=== PATIENT | male | born 1940 | race Caucasian/White ===

== ENCOUNTER 2020-09-17 08:00 | Inpatient (IN) | payer MEDICARE, BC ==
--- NOTE | 2020-09-17 08:23 | EDM.PDOC ---
ED HPI GENERAL MEDICAL PROBLEM - General Chief Complaint: Chest Pain Stated Complaint: CHEST PAIN Time Seen by Provider: 09/17/20 08:23 Source of Information: Reports: Patient History Limitations: Reports: No Limitations - History of Present Illness INITIAL COMMENTS - FREE TEXT/NARRATIVE: 80-year-old male presents to the ED in the accompaniment of his . Chief complaint is increasing dyspnea on minimal exertion with pleuritic left-sided precordial chest pains that started last night. Patient appreciates a 2-3 point pound weight gain over the last 3 to 4 days. Patient has terminal congestive heart failure. He is currently on 60 mg of Lasix in the morning and 40 mg in the p.m. He did take 80 mg of Lasix this morning. Also had mild diarrhea this morning x1 with associated mild upper GI upset. Nausea with no vomiting. Stool did not contain any blood. Of note the patient is on both Plavix and Coumadin due to chronic atrial fibrillation and recent stent placement. Onset: Gradual Onset Date: 09/14/20 Duration: Day(s):, Getting Worse Location: Reports: Chest (Dyspnea on minimal exertion. Development of left precordial chest) Quality: Reports: Other ( pain this morning which is pleuritic in nature. Pleuritic left precordial chest pain) Severity: Moderate Improves with: Reports: None Worsens with: Reports: Other (Worse with exertion and deep breathing.) Context: Reports: Other (Recent 2 stent placement and 1 vessel balloon angioplasty 6 weeks ago. Aortic valve replaced in 2003.). Denies: Activity, Exercise, Lifting, Sick Contact, Trauma Associated Symptoms: Reports: Chest Pain, Cough, Loss of Appetite, Malaise, Nausea/Vomiting, Shortness of Breath, Weakness, Other. Denies: Confusion, cough w sputum (Nonproductive cough), Diaphoresis, Fever/Chills, Headaches, Rash, Seizure (Nausea without vomiting), Syncope Treatments RETOUCHER: Reports: Other (see below) (Recent reduction of amiodarone from 200 mg daily to 100 mg daily.) Chest Pain Score (Numeric/FACES): 2 - Related Data Allergies Allergy/AdvReac Type Severity Reaction Status Date / Time enoxaparin [From Lovenox] Allergy Rash Verified 09/17/20 08:13 statins Allergy Mild Muscle Uncoded 09/17/20 08:12 Weakness Home Meds: Home Meds Aspirin [Halfprin] 81 mg PO QAM 02/04/14 [History] Niacin 500 mg PO BEDTIME 02/04/14 [History] Tamsulosin [Flomax] 0.4 mg PO BEDTIME 02/04/14 [History] Warfarin [Coumadin] 2.5 mg PO DAILY 12/30/15 [History] Amiodarone [Cordarone] 200 mg PO DAILY 09/17/20 [History] Calcium Carbonate [Tums] 1 - 2 tab.chew PO DAILY PRN 09/17/20 [History] Clopidogrel [Plavix] 70 mg PO QPM 09/17/20 [History] Furosemide 40 mg PO 1400 09/17/20 [History] Furosemide 60 mg PO QAM 09/17/20 [History] Metoprolol Tartrate 25 mg PO BID 09/17/20 [History] Nitroglycerin 0.4 mg SL ASDIRECTED PRN 09/17/20 [History] Potassium Chloride [Klor-Con 10] 20 meq PO DAILY 09/17/20 [History] Ubidecarenone [Coq-10] 200 mg PO QPM 09/17/20 [History] lisinopriL [Lisinopril] 10 mg PO BEDTIME 09/17/20 [History] Past Medical History HEENT History: Reports: Cataract, Other (See Below) Other HEENT History: glasses Cardiovascular History: Reports: Heart Murmur, Heart Valve Replacement (Prosthetic aortic heart valve placed in 2003.), High Cholesterol, Hypertension, Stents (Recently had 2 stents and 1 vessel balloon angioplasty around August 02, [address] Feldman.) Other Cardiovascular History: AORTIC VALVE SURGERY Respiratory History: Reports: COPD (Mild) Other Respiratory History: UPPER RESPIRATORY INFECTION ON Sunday Genitourinary History: Reports: BPH, Other (See Below) Other Genitourinary History: bladder cancer Musculoskeletal History: Reports: Osteoarthritis, Other (See Below) Other Musculoskeletal History: r hip replacement, back surgery, left shoulder Oncologic (Cancer) History: Reports: Bladder - Past Surgical History HEENT Surgical History: Reports: Tonsillectomy Social & Family History - Tobacco Use Tobacco Use Status *Q: Never Tobacco User Second Hand Smoke Exposure: No - Caffeine Use Caffeine Use: Reports: Coffee, Soda - Recreational Drug Use Recreational Drug Use: No - Living Situation & Occupation Living situation: Reports: Occupation: Retired ED ROS GENERAL - Review of Systems Review Of Systems: See Below Constitutional: Reports: Malaise, Weakness, Fatigue, Decreased Appetite (2 to 3 pound weight: Over the last 4 days. Is bloated and distended.), Weight Gain. Denies: Fever, Chills HEENT: Reports: Glasses Respiratory: Reports: Shortness of Breath, Pleuritic Chest Pain, Cough (Left- sided pleuritic chest pain started during the night. Cough mainly nonproductive). Denies: Wheezing, Sputum ( worse yesterday than today), Hemoptysis, Other Cardiovascular: Reports: Blood Pressure Problem, Dyspnea on Exertion (Increased edema both lower extremities over the last several days.), Edema, Palpitations (Occasionally aware of palpitations.). Denies: Claudication, Lightheadedness, Orthopnea, PND Endocrine: Reports: Fatigue GI/Abdominal: Reports: Abdominal Pain (Feels abdominally bloated.), Diarrhea (Mild diarrhea this morning yellow no blood), Decreased Appetite, Nausea. Denies: Difficulty Swallowing, Vomiting (Nausea this morning), Other : Reports: Frequency, Other (Nocturia x2) Musculoskeletal: Reports: Neck Pain, Shoulder Pain, Back Pain, Joint Pain ( known BPH.) Skin: Reports: Bruising (Easy bruising as he is on Plavix and Coumadin.) Neurological: Reports: Difficulty Walking, Weakness. Denies: Confusion, Dizziness, Headache, Numbness, Syncope, Tingling, Tremors (Due to dyspnea.), Trouble Speaking, Change in Speech Psychiatric: Reports: No Symptoms Hematologic/Lymphatic: Reports: No Symptoms Immunologic: Reports: No Symptoms ED EXAM, GENERAL - Physical Exam Exam: See Below Exam Limited By: No Limitations General Appearance: Alert, WD/WN, Anxious, Other (Temperature is 36.1 degrees. Heart rate 60 and atrial fibrillation on the monitor. Respiratory rate was 25 to 28/min with O2 sats of 99% on room air. BP 140/77.) Eye Exam: Bilateral Eye: Normal Inspection (No blepharal pallor or scleral icterus.), PERRL Throat/Mouth: Normal Inspection, Normal Lips, Normal Oropharynx, Other. No: Normal Teeth Head: Atraumatic, Normocephalic Neck: Normal Inspection, Limited Range of Motion. No: Supple, Carotid Bruit, Lymphadenopathy (L) (Crepitus on lateral rotation and flexion.), Lymphadenopathy (R), Thyromegaly Respiratory/Chest: Lungs Clear (Tachypnea at rest.), Respiratory Distress, Decreased Breath Sounds (Very mild decreased breath sounds to both lower lung mendez with no adventitial sounds). No: Rales, Rhonchi, Wheezing Cardiovascular: No Rub, Systolic Murmur (Grade 1 out of 6 pansystolic ejection murmur best heard at the left parasternal border.), Irregularly Irregular (Chronic atrial fibrillation. Current rate is in the 60s.). No: Normal Peripheral Pulses, Regular Rate, Rhythm, No Edema, No Gallop Peripheral Pulses: 1+: Posterior Tibial (L) (Pulses in the feet are difficult to feel due to edema.), Posterior Tibial (R), Dorsalis Pedis (L), Dorsalis Pedis (R), 2+: Carotid (L), Carotid (R) GI/Abdominal: Soft ( percussion.), Non-Tender, No Organomegaly, Distended ( hyperactive in all 4 quadrants. Minimally distended), Abnormal Bowel Sounds (Bowel sounds are slightly), Other (Mildly obese. Scattered ecchymoses abdominal wall from recent injections.). No: No Abnormal Bruit, No Mass, Pelvis Stable Extremities: Pedal Edema (4+ pitting edema up to the knees bilaterally.), Other (Osteoarthritic changes both knees and both hips with reduced range of motion.) Neurological: Alert, Oriented, CN II-XII Intact, Normal Cognition Psychiatric: Anxious Skin Exam: Warm, Dry, Intact, Normal Color, No Rash #1 Interpretation EKG Date: 09/17/20 Time: 08:08 Rhythm: A-Fib (With rate of 54 to 86 bpm) Rate (Beats/Min): 61 [place]: LAD-Left [place] Deviation (-97 degrees) P-Wave: Absent QRS: Other (Q waves leads II, III and aVF consider old inferior wall myocardial infarction. 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 Abnormal ECG) Course - Vital Signs Last Recorded V/S: Last Vital Signs Temp 36.1 C 09/17/20 08:11 Pulse 60 09/17/20 08:11 Resp 25 H 09/17/20 08:11 BP 140/77 09/17/20 08:11 Pulse Ox 99 09/17/20 08:11 - Orders/Labs/Meds Orders: Active Orders 24 hr Category Date Time Status Admission Status [Patient Status] [ADT] Routine ADT 09/17/20 10:59 Active EKG Documentation Completion [RC] ASDIRECTED Care 09/17/20 10:10 Active EKG 12 Lead [EK] Stat Ther 09/17/20 10:10 Ordered Labs: Laboratory Tests 09/17/20 09/17/20 09/17/20 Range/Units 08:15 08:15 08:15 WBC 6.33 (4.23-9.07) K/mm3 RBC 4.66 (4.63-6.08) M/mm3 Hgb 13.7 D (13.7-17.5) gm/dl Hct 42.0 (40.1-51.0) % MCV 90.1 D (79.0-92.2) fl MCH 29.4 (25.7-32.2) pg MCHC 32.6 (32.2-35.5) g/dl RDW Std Deviation 46.7 H (35.1-43.9) fL Plt Count 191 D (163-337) K/mm3 MPV 9.8 (9.4-12.3) fl Neut % (Auto) 73.5 H (34.0-67.9) % Lymph % (Auto) 10.4 L (21.8-53.1) % [place] % (Auto) 8.5 (5.3-12.2) % Eos % (Auto) 6.3 (0.8-7.0) Baso % (Auto) 0.8 (0.1-1.2) % Neut # (Auto) 4.65 (1.78-5.38) K/mm3 Lymph # (Auto) 0.66 L (1.32-3.57) K/mm3 [place] # (Auto) 0.54 (0.30-0.82) K/mm3 Eos # (Auto) 0.40 (0.04-0.54) K/mm3 Baso # (Auto) 0.05 (0.01-0.08) K/mm3 PT 43.6 H (9.7-12.0) SECONDS INR 4.19 Sodium 139 (136-145) mEq/L Potassium 4.3 (3.5-5.1) mEq/L Chloride 103 (98-107) mEq/L Carbon Dioxide 26 (21-32) mEq/L Anion Gap 14.3 (5-15) BUN 27 H (7-18) mg/dL Creatinine 1.8 H (0.7-1.3) mg/dL Est Cr Clr Drug Dosing 28.00 mL/min Estimated GFR (MDRD) 36 (>60) mL/min BUN/Creatinine Ratio 15.0 (14-18) Glucose 187 H (70-99) mg/dL Calcium 9.1 (8.5-10.1) mg/dL Magnesium (1.8-2.4) mg/dL Total Bilirubin 0.5 (0.2-1.0) mg/dL AST 21 (15-37) U/L ALT 26 (16-63) U/L Alkaline Phosphatase 82 (46-116) U/L Troponin I 0.080 H* (0.00-0.056) ng/mL C-Reactive Protein (<1.0) mg/dL NT-Pro-B Natriuret Pep (0-450) pg/mL Total Protein 7.2 (6.4-8.2) g/dl Albumin 3.8 (3.4-5.0) g/dl Globulin 3.4 gm/dL Albumin/Globulin Ratio 1.1 (1-2) Urine Color (Yellow) Urine Appearance (Clear) Urine pH (5.0-8.0) Ur Specific [place] (1.005-1.030) Urine Protein (Negative) Urine Glucose (UA) (Negative) Urine Ketones (Negative) Urine Occult Blood (Negative) Urine Nitrite (Negative) Urine Bilirubin (Negative) Urine Urobilinogen (0.2-1.0) Ur Leukocyte Esterase (Negative) Urine RBC (0-5) /hpf Urine WBC (0-5) /hpf Ur Epithelial Cells (0-5) /hpf Urine Bacteria (FEW) /hpf Urine Mucus (FEW) /hpf SARS-CoV-2 RNA (SAMRA) (NEGATIVE) 09/17/20 09/17/20 09/17/20 Range/Units 08:15 08:15 09:03 WBC (4.23-9.07) K/mm3 RBC (4.63-6.08) M/mm3 Hgb (13.7-17.5) gm/dl Hct (40.1-51.0) % MCV (79.0-92.2) fl MCH (25.7-32.2) pg MCHC (32.2-35.5) g/dl RDW Std Deviation (35.1-43.9) fL Plt Count (163-337) K/mm3 MPV (9.4-12.3) fl Neut % (Auto) (34.0-67.9) % Lymph % (Auto) (21.8-53.1) % [place] % (Auto) (5.3-12.2) % Eos % (Auto) (0.8-7.0) Baso % (Auto) (0.1-1.2) % Neut # (Auto) (1.78-5.38) K/mm3 Lymph # (Auto) (1.32-3.57) K/mm3 [place] # (Auto) (0.30-0.82) K/mm3 Eos # (Auto) (0.04-0.54) K/mm3 Baso # (Auto) (0.01-0.08) K/mm3 PT (9.7-12.0) SECONDS INR Sodium (136-145) mEq/L Potassium (3.5-5.1) mEq/L Chloride (98-107) mEq/L Carbon Dioxide (21-32) mEq/L Anion Gap (5-15) BUN (7-18) mg/dL Creatinine (0.7-1.3) mg/dL Est Cr Clr Drug Dosing mL/min Estimated GFR (MDRD) (>60) mL/min BUN/Creatinine Ratio (14-18) Glucose (70-99) mg/dL Calcium (8.5-10.1) mg/dL Magnesium 2.2 (1.8-2.4) mg/dL Total Bilirubin (0.2-1.0) mg/dL AST (15-37) U/L ALT (16-63) U/L Alkaline Phosphatase (46-116) U/L Troponin I (0.00-0.056) ng/mL C-Reactive Protein <0.2 (<1.0) mg/dL NT-Pro-B Natriuret Pep 4164 H (0-450) pg/mL Total Protein (6.4-8.2) g/dl Albumin (3.4-5.0) g/dl Globulin gm/dL Albumin/Globulin Ratio (1-2) Urine Color (Yellow) Urine Appearance (Clear) Urine pH (5.0-8.0) Ur Specific [place] (1.005-1.030) Urine Protein (Negative) Urine Glucose (UA) (Negative) Urine Ketones (Negative) Urine Occult Blood (Negative) Urine Nitrite (Negative) Urine Bilirubin (Negative) Urine Urobilinogen (0.2-1.0) Ur Leukocyte Esterase (Negative) Urine RBC (0-5) /hpf Urine WBC (0-5) /hpf Ur Epithelial Cells (0-5) /hpf Urine Bacteria (FEW) /hpf Urine Mucus (FEW) /hpf SARS-CoV-2 RNA (SAMRA) Negative (NEGATIVE) 09/17/20 Range/Units 09:08 WBC (4.23-9.07) K/mm3 RBC (4.63-6.08) M/mm3 Hgb (13.7-17.5) gm/dl Hct (40.1-51.0) % MCV (79.0-92.2) fl MCH (25.7-32.2) pg MCHC (32.2-35.5) g/dl RDW Std Deviation (35.1-43.9) fL Plt Count (163-337) K/mm3 MPV (9.4-12.3) fl Neut % (Auto) (34.0-67.9) % Lymph % (Auto) (21.8-53.1) % [place] % (Auto) (5.3-12.2) % Eos % (Auto) (0.8-7.0) Baso % (Auto) (0.1-1.2) % Neut # (Auto) (1.78-5.38) K/mm3 Lymph # (Auto) (1.32-3.57) K/mm3 [place] # (Auto) (0.30-0.82) K/mm3 Eos # (Auto) (0.04-0.54) K/mm3 Baso # (Auto) (0.01-0.08) K/mm3 PT (9.7-12.0) SECONDS INR Sodium (136-145) mEq/L Potassium (3.5-5.1) mEq/L Chloride (98-107) mEq/L Carbon Dioxide (21-32) mEq/L Anion Gap (5-15) BUN (7-18) mg/dL Creatinine (0.7-1.3) mg/dL Est Cr Clr Drug Dosing mL/min Estimated GFR (MDRD) (>60) mL/min BUN/Creatinine Ratio (14-18) Glucose (70-99) mg/dL Calcium (8.5-10.1) mg/dL Magnesium (1.8-2.4) mg/dL Total Bilirubin (0.2-1.0) mg/dL AST (15-37) U/L ALT (16-63) U/L Alkaline Phosphatase (46-116) U/L Troponin I (0.00-0.056) ng/mL C-Reactive Protein (<1.0) mg/dL NT-Pro-B Natriuret Pep (0-450) pg/mL Total Protein (6.4-8.2) g/dl Albumin (3.4-5.0) g/dl Globulin gm/dL Albumin/Globulin Ratio (1-2) Urine Color Light yellow (Yellow) Urine Appearance Clear (Clear) Urine pH 7.0 (5.0-8.0) Ur Specific [place] 1.020 (1.005-1.030) Urine Protein Negative (Negative) Urine Glucose (UA) Negative (Negative) Urine Ketones Negative (Negative) Urine Occult Blood Negative (Negative) Urine Nitrite Negative (Negative) Urine Bilirubin Negative (Negative) Urine Urobilinogen 1.0 (0.2-1.0) Ur Leukocyte Esterase Negative (Negative) Urine RBC 0-5 (0-5) /hpf Urine WBC 0-5 (0-5) /hpf Ur Epithelial Cells Not seen (0-5) /hpf Urine Bacteria Rare (FEW) /hpf Urine Mucus Rare (FEW) /hpf SARS-CoV-2 RNA (SAMRA) (NEGATIVE) Meds: Medications Discontinued Medications Generic Name Dose Route Start Last Admin Trade Name Freq PRN Reason Stop Dose Admin Bumetanide 1 mg 09/17/20 10:57 Bumetanide 1 Mg/4 Ml Mdv IVPUSH 09/17/20 10:58 ONETIME ONE Hydromorphone HCl 0.5 mg 09/17/20 08:35 09/17/20 08:53 Hydromorphone 0.5 Mg/0.5 Ml Syringe IVPUSH 09/17/20 08:36 0.5 mg ONETIME ONE Administration Metoclopramide HCl 7.5 mg 09/17/20 08:33 09/17/20 08:53 Metoclopramide 10 Mg/2 Ml Sdv IVPUSH 09/17/20 08:34 7.5 mg ONETIME ONE Administration - Radiology Interpretation Free Text/Narrative:: 80-year-old male presents to the ED with increased weight gain of 2 to 3 pounds over the last 3 days. Associated dyspnea on minimal exertion and development of pleuritic left anterior chest pain this morning. He had 2 stent placement and one-vessel angioplasty carried out 6 weeks ago by central supply nurse at [facility] in [place]. Patient had aortic valve replaced in 2003 and it is a mechanical valve requiring Coumadin which the patient is on. Recently added a course of Plavix to his treatment plan. He appreciates increased bruising abdominal wall etc. Associated mild upset stomach this morning with one loose stool mild yellow diarrhea stool. Patient is dyspneic on exertion. He did take 80 mg of Lasix a 240 mg tablets this morning. He is currently on 60 mg in the a.m. and 40 mg in the p.m. Plan routine labs including troponin and magnesium and BNP. 1 view chest x-ray to be done. Given Reglan 7.5 mg IV for nausea relief and Dilaudid 0.05 mg IV for pain relief. - Re-Assessments/Exams Free Text/Narrative Re-Assessment/Exam: 09/17/20 09:13 portable chest x-ray reveals mild cardiomegaly. Very mild diffuse vascular congestion pattern with no pleural effusion. No lung infiltrates appreciated. Sternotomy wires appreciated from previous prosthetic heart valve surgery. 09/17/20 09:44 White count is 6.33. Differential shows 73.5% neutrophils on the auto differential. Hemoglobin is 13.7 with hematocrit of 42.0. Platelet count 191,000. Sodium is 139 with a potassium of 4.3. Chloride is 103 with a bicarb of 26. Anion gap is 14.3. BUN is 27 with a creatinine of 1.8 and a GFR of 36 a stage IIIb renal insufficiency. Glucose is 187. Calcium 9.1 . Liver function normal. Troponin I is mildly elevated at 0.080. Total protein 7.2 BNP pending. Urinalysis is normal. 09/17/20 10:45 C-reactive protein is less than 0.2. BNP is 4164. COVID-19 screen is negative. PT is 43.6 with an INR of 4.19 ie. Moderately supratherapeutic INR. Magnesium level is normal at 2.2. 09/17/20 10:57 I have spoke with the patient and family there is a son in the room and the patient and indicated that I believe he would be better suited to come into the hospital for IV diuretics to ease his chest discomfort and dyspnea as increased doses of Lasix orally are not helping. Patient indicates that his INR was higher I at 5.22 days ago and he is currently taking 2.5 mg of Coumadin daily. Patient was taking 5 mg 2 days a week and 2.5 mg the other days. He has not taken any Coumadin yet today and I am going to leave him off Coumadin today. Therapeutic for him is between 2.5 and 3.5 due to mechanical aortic valve. I have since spoken with Dr. Singh on-call hospitalist and we will have the patient admitted to the med surgery floor on telemetry. I am going to give him a dose of Bumex 1 mg IV to hopefully start diuresis. Departure - Departure Time of Disposition: 11:01 Disposition: Admitted As Inpatient 65 Reason for Transfer *Q: Other Condition: Poor Clinical Impression: Congestive heart failure due to valvular disease, Non-cardiac chest pain, Supratherapeutic INR, Pleuritic chest pain Chronic renal insufficiency, stage III (moderate) Qualifiers: Chronic kidney disease stage 3 subtype: stage 3b (GFR 30-44) Qualified Code(s): N18.32 - Chronic kidney disease, stage 3b Referrals: Shani Meza NP [Primary Care Provider] - Forms: ED Department Discharge Sepsis Event Note (ED) - Evaluation Sepsis Screening Result: No Definite Risk - Focused Exam Vital Signs: Vital Signs Temp Pulse Resp BP Pulse Ox 09/17/20 08:11 36.1 C 60 25 H 140/77 99 - My Orders Last 24 Hours: My Active Orders 09/17/20 10:10 EKG Documentation Completion [RC] ASDIRECTED EKG 12 Lead [EK] Stat 09/17/20 10:59 Admission Status [Patient Status] [ADT] Routine - Assessment/Plan Last 24 Hours: My Active Orders 09/17/20 10:10 EKG Documentation Completion [RC] ASDIRECTED EKG 12 Lead [EK] Stat 09/17/20 10:59 Admission Status [Patient Status] [ADT] Routine
[2020-09-17] MEDS ORDERED: Metoclopramide 10 MG/2 ML SDV IVPUSH ONE (08:33)
[2020-09-17] MEDS ORDERED: HYDROmorphone 0.5 MG/0.5 ML Syringe IVPUSH ONE (08:35)
--- NOTE | 2020-09-17 09:15 | CR ---
Chest: Portable view of the chest was obtained. Comparison: Prior chest x-rays of 06/29/20 and baseline chest x-ray of 12/30/15. Heart is enlarged. Upper mediastinum is within normal limits. Sternotomy wires are seen with prosthetic heart valve. Central pulmonary markings are slightly increased which are believed to represent mild pulmonary vascular congestion. No acute parenchymal change is otherwise seen. Impression: 1. Cardiomegaly with sternotomy wires and prosthetic heart valve. 2. Mild pulmonary vascular congestion is noted. Some of this may be chronic, but please correlate with the patient's symptoms. Diagnostic code #3
[2020-09-17] MEDS ORDERED: Bumetanide 1 MG/4 ML MDV IVPUSH ONE (10:57)
--- NOTE | 2020-09-17 11:14 | PCM.HP.2 ---
H&P History of Present Illness - General Date of Service: 09/17/20 Admit Problem/Dx: Admission Diagnosis/Problem Admission Diagnosis/Problem Congestive heart failure, NYHA class 3 Source of Information: Patient, Old Records, Provider, RN, RN Notes Reviewed History Limitations: Reports: No Limitations - History of Present Illness Initial Comments - Free Text/Narative: This is an 80-year-old male presents to ED on 10-18-2020 accompanied by his with increased dyspnea on minimal exertion and pleuritic left-sided precordial chest pain that started earlier in the night. He reports a 2 to 3 pound weight gain over the past 3 to 4 days. He does have a history of terminal congestive heart failure and is currently on 60 mg of Lasix in the morning and 40 mg in the evening. He reports he has been taking this as prescribed. He notes mild diarrhea and associated upper GI upset with nausea but no vomiting. Denies any melena or hematochezia. Patient is on Plavix and Coumadin due to chronic A. fib and recent stent placement. In the ED twelve-lead EKG is obtained showing atrial fibrillation with a rate of 54 to 86 bpm. There is left axis deviation and Q waves are noted in II, III, and aVF. Q waves are also noted in V3 and V4 with near Q waves in V5 and V6. T wave inversions noted in aVL and there is a prolonged QTC. Temp is 36.1 Celsius. Pulse 60. Respirations 25. Blood pressure 140/77. Pulse ox 99% on room air. Labs were obtained with a WBC of 6.33. Hemoglobin is 13.7. Patient is normocytic. Platelets are 191,000. Neutrophils are elevated at 73.5%. INR is high at 4.19. Sodium is 139. Potassium 4.3. Chloride 103. Carbon dioxide 26. Anion gap is 14.3. BUN is 27. Creatinine 1.8. GFR is 36. Glucose is 187. Calcium 9.1. Total bilirubin 0.5. AST is 21, ALT 26, alkaline phosphatase 82. Troponin is 0.080. Albumin is 3.8. Protein is 7.2. Magnesium is 2.2. CRP is less than 0.2. proBNP is 4164. UA is obtained and is negative. SARS Covid 2 RNA is negative. Chest x-ray is obtained showing cardiomegaly with sternotomy wires and prosthetic heart valves. There is mild pulmonary vascular congestion noted, which may be chronic. Patient is noted to have 2 stents placed in 1 vessel angioplasty carried out [address] Feldman, manager database administration, at [facility] in [place]. Aortic valve was replaced in 2003 and his mechanical valve requiring Coumadin. Per the patient his INR was actually above 5 a few days ago and he is currently on 2.5 mg of Coumadin daily. This was a decrease from 5 mg 2 days a week and 2.5 on the other days. Reports he had not taken his Coumadin yet today. He is given 1 mg of IV push bumetanide. He is also given 0.5 mg Dilaudid and 7.5 mg metoclopramide. He subsequently admitted to the medical floor on telemetry for management of his CHF exacerbation and subsequent diuresis. He carries a history of heart murmur, mechanical heart aortic heart valve replacement in 2003, CHF, HLD, HTN, stent placement, COPD, BPH, bladder cancer, osteoarthritis. He was never a smoker. He is a DNR/DNI. His PCP is Shani Meza NP. Chest Pain Score (Numeric/FACES): 2 - Related Data Allergies/Adverse Reactions: Allergies Allergy/AdvReac Type Severity Reaction Status Date / Time enoxaparin [From Lovenox] Allergy Rash Verified 09/17/20 12:04 statins Allergy Mild Muscle Uncoded 09/17/20 08:12 Weakness Home Medications: Home Meds Aspirin [Halfprin] 81 mg PO QAM 02/04/14 [History] Niacin 500 mg PO DAILY 02/04/14 [History] Tamsulosin [Flomax] 0.4 mg PO BEDTIME 02/04/14 [History] Warfarin [Coumadin] 2.5 mg PO 1800 12/30/15 [History] Amiodarone [Cordarone] 200 mg PO DAILY 09/17/20 [History] Calcium Carbonate [Tums] 1 - 2 tab.chew PO DAILY 09/17/20 [History] Clopidogrel [Plavix] 75 mg PO QPM 09/17/20 [History] Furosemide 40 mg PO 1400 09/17/20 [History] Furosemide 60 mg PO QAM 09/17/20 [History] Metoprolol Tartrate 25 mg PO BID 09/17/20 [History] Nitroglycerin 0.4 mg SL ASDIRECTED PRN 09/17/20 [History] Potassium Chloride [Klor-Con 10] 20 meq PO DAILY 09/17/20 [History] Ubidecarenone [Coq-10] 200 mg PO QPM 09/17/20 [History] lisinopriL [Lisinopril] 10 mg PO BEDTIME 09/17/20 [History] Past Medical History HEENT History: Reports: Cataract, Other (See Below) Other HEENT History: glasses Cardiovascular History: Reports: Heart Murmur, Heart Valve Replacement (Prosthetic aortic heart valve placed in 2003.), High Cholesterol, Hypertension, Stents (Recently had 2 stents and 1 vessel balloon angioplasty around August 02, [address] Feldman.) Other Cardiovascular History: AORTIC VALVE SURGERY Respiratory History: Reports: COPD (Mild) Other Respiratory History: UPPER RESPIRATORY INFECTION ON Sunday Genitourinary History: Reports: BPH, Other (See Below) Other Genitourinary History: bladder cancer Musculoskeletal History: Reports: Osteoarthritis, Other (See Below) Other Musculoskeletal History: r hip replacement, back surgery, left shoulder Oncologic (Cancer) History: Reports: Bladder - Past Surgical History HEENT Surgical History: Reports: Tonsillectomy Social & Family History - Tobacco Use Tobacco Use Status *Q: Never Tobacco User Second Hand Smoke Exposure: No - Caffeine Use Caffeine Use: Reports: Coffee, Soda - Recreational Drug Use Recreational Drug Use: No - Living Situation & Occupation Living situation: Reports: Occupation: Retired H&P Review of Systems - Review of Systems: Review Of Systems: See Below General: Reports: Malaise, Weakness, Fatigue, Weight Gain. Denies: Fever, Chills, Diaphoresis, Decreased Appetite HEENT: Reports: No Symptoms. Denies: Headaches, Sore Throat Pulmonary: Reports: Shortness of Breath, Pleuritic Chest Pain, Cough. Denies: Wheezing, Sputum Cardiovascular: Reports: Chest Pain, Palpitations (at times ), Dyspnea on Exertion, Edema, Blood Pressure Problem. Denies: Orthopnea, Lightheadedness, Syncope Gastrointestinal: Reports: Diarrhea, Decreased Appetite, Nausea, Other (Reports he feels bloated ). Denies: Abdominal Pain, Constipation, Hematochezia, Melena, Vomiting Genitourinary: Reports: Frequency, Retention (BPH). Denies: Burning, Pain Musculoskeletal: Reports: Neck Pain, Shoulder Pain, Back Pain, Joint Pain Skin: Denies: Cyanosis Psychiatric: Denies: Confusion Neurological: Reports: Difficulty Walking, Weakness. Denies: Dizziness, Headache, Numbness, Pre-Existing Deficit, Syncope, Tingling, Trouble Speaking, Change in Speech, Gait Disturbance Hematologic/Lymphatic: Reports: Easy Bruising (On plavix and warfarin (supratherapeutic)) Exam - Exam Exam: See Below - Vital Signs Vital Signs: Last Vital Signs Temp 97.0 F 09/17/20 08:11 Pulse 60 09/17/20 08:11 Resp 25 H 09/17/20 08:11 BP 140/77 09/17/20 08:11 Pulse Ox 99 09/17/20 08:11 Weight: 205 lb - Exam Quality Assessment: DVT Prophylaxis (Home warfarin). No: Supplemental Oxygen, Urinary Catheter General: Alert, Oriented, Cooperative. No: Mild Distress HEENT: Conjunctiva Clear, EACs Clear, Mucosa Moist & [place], Posterior Pharynx Clear Neck: Supple, Trachea Midline Lungs: Normal Respiratory Effort, Decreased Breath Sounds. No: Crackles, Rales, Rhonchi, Wheezing Cardiovascular: Regular Rate, Irregular Rhythm, Systolic Murmur GI/Abdominal Exam: Normal Bowel Sounds, Soft, Non-Tender, No Distention (Male) Exam: Deferred Rectal (Males) Exam: Deferred Back Exam: Normal Inspection, Full Range of Motion Extremities: Normal Inspection, Normal Range of Motion, Non-Tender, Normal Capillary Refill, Pedal Edema (4+ ) Peripheral Pulses: 2+: Radial (L), Radial (R) Skin: Warm, Dry, Intact, Ecchymosis (scattered ) Neurological: Cranial Nerves Intact (Grossly ) Neuro Extensive - Mental Status: Alert, Oriented x3, Normal Mood/Affect - Patient Data Lab Results Last 24 hrs: Laboratory Results - last 24 hr 09/17/20 09/17/20 09/17/20 Range/Units 08:15 08:15 08:15 WBC 6.33 (4.23-9.07) K/mm3 RBC 4.66 (4.63-6.08) M/mm3 Hgb 13.7 D (13.7-17.5) gm/dl Hct 42.0 (40.1-51.0) % MCV 90.1 D (79.0-92.2) fl MCH 29.4 (25.7-32.2) pg MCHC 32.6 (32.2-35.5) g/dl RDW Std Deviation 46.7 H (35.1-43.9) fL Plt Count 191 D (163-337) K/mm3 MPV 9.8 (9.4-12.3) fl Neut % (Auto) 73.5 H (34.0-67.9) % Lymph % (Auto) 10.4 L (21.8-53.1) % [place] % (Auto) 8.5 (5.3-12.2) % Eos % (Auto) 6.3 (0.8-7.0) Baso % (Auto) 0.8 (0.1-1.2) % Neut # (Auto) 4.65 (1.78-5.38) K/mm3 Lymph # (Auto) 0.66 L (1.32-3.57) K/mm3 [place] # (Auto) 0.54 (0.30-0.82) K/mm3 Eos # (Auto) 0.40 (0.04-0.54) K/mm3 Baso # (Auto) 0.05 (0.01-0.08) K/mm3 PT 43.6 H (9.7-12.0) SECONDS INR 4.19 Sodium 139 (136-145) mEq/L Potassium 4.3 (3.5-5.1) mEq/L Chloride 103 (98-107) mEq/L Carbon Dioxide 26 (21-32) mEq/L Anion Gap 14.3 (5-15) BUN 27 H (7-18) mg/dL Creatinine 1.8 H (0.7-1.3) mg/dL Est Cr Clr Drug Dosing 28.00 mL/min Estimated GFR (MDRD) 36 (>60) mL/min BUN/Creatinine Ratio 15.0 (14-18) Glucose 187 H (70-99) mg/dL Calcium 9.1 (8.5-10.1) mg/dL Magnesium (1.8-2.4) mg/dL Total Bilirubin 0.5 (0.2-1.0) mg/dL AST 21 (15-37) U/L ALT 26 (16-63) U/L Alkaline Phosphatase 82 (46-116) U/L Troponin I 0.080 H* (0.00-0.056) ng/mL C-Reactive Protein (<1.0) mg/dL NT-Pro-B Natriuret Pep (0-450) pg/mL Total Protein 7.2 (6.4-8.2) g/dl Albumin 3.8 (3.4-5.0) g/dl Globulin 3.4 gm/dL Albumin/Globulin Ratio 1.1 (1-2) Urine Color (Yellow) Urine Appearance (Clear) Urine pH (5.0-8.0) Ur Specific [place] (1.005-1.030) Urine Protein (Negative) Urine Glucose (UA) (Negative) Urine Ketones (Negative) Urine Occult Blood (Negative) Urine Nitrite (Negative) Urine Bilirubin (Negative) Urine Urobilinogen (0.2-1.0) Ur Leukocyte Esterase (Negative) Urine RBC (0-5) /hpf Urine WBC (0-5) /hpf Ur Epithelial Cells (0-5) /hpf Urine Bacteria (FEW) /hpf Urine Mucus (FEW) /hpf SARS-CoV-2 RNA (SAMRA) (NEGATIVE) 09/17/20 09/17/20 09/17/20 Range/Units 08:15 08:15 09:03 WBC (4.23-9.07) K/mm3 RBC (4.63-6.08) M/mm3 Hgb (13.7-17.5) gm/dl Hct (40.1-51.0) % MCV (79.0-92.2) fl MCH (25.7-32.2) pg MCHC (32.2-35.5) g/dl RDW Std Deviation (35.1-43.9) fL Plt Count (163-337) K/mm3 MPV (9.4-12.3) fl Neut % (Auto) (34.0-67.9) % Lymph % (Auto) (21.8-53.1) % [place] % (Auto) (5.3-12.2) % Eos % (Auto) (0.8-7.0) Baso % (Auto) (0.1-1.2) % Neut # (Auto) (1.78-5.38) K/mm3 Lymph # (Auto) (1.32-3.57) K/mm3 [place] # (Auto) (0.30-0.82) K/mm3 Eos # (Auto) (0.04-0.54) K/mm3 Baso # (Auto) (0.01-0.08) K/mm3 PT (9.7-12.0) SECONDS INR Sodium (136-145) mEq/L Potassium (3.5-5.1) mEq/L Chloride (98-107) mEq/L Carbon Dioxide (21-32) mEq/L Anion Gap (5-15) BUN (7-18) mg/dL Creatinine (0.7-1.3) mg/dL Est Cr Clr Drug Dosing mL/min Estimated GFR (MDRD) (>60) mL/min BUN/Creatinine Ratio (14-18) Glucose (70-99) mg/dL Calcium (8.5-10.1) mg/dL Magnesium 2.2 (1.8-2.4) mg/dL Total Bilirubin (0.2-1.0) mg/dL AST (15-37) U/L ALT (16-63) U/L Alkaline Phosphatase (46-116) U/L Troponin I (0.00-0.056) ng/mL C-Reactive Protein <0.2 (<1.0) mg/dL NT-Pro-B Natriuret Pep 4164 H (0-450) pg/mL Total Protein (6.4-8.2) g/dl Albumin (3.4-5.0) g/dl Globulin gm/dL Albumin/Globulin Ratio (1-2) Urine Color (Yellow) Urine Appearance (Clear) Urine pH (5.0-8.0) Ur Specific [place] (1.005-1.030) Urine Protein (Negative) Urine Glucose (UA) (Negative) Urine Ketones (Negative) Urine Occult Blood (Negative) Urine Nitrite (Negative) Urine Bilirubin (Negative) Urine Urobilinogen (0.2-1.0) Ur Leukocyte Esterase (Negative) Urine RBC (0-5) /hpf Urine WBC (0-5) /hpf Ur Epithelial Cells (0-5) /hpf Urine Bacteria (FEW) /hpf Urine Mucus (FEW) /hpf SARS-CoV-2 RNA (SAMRA) Negative (NEGATIVE) 09/17/20 Range/Units 09:08 WBC (4.23-9.07) K/mm3 RBC (4.63-6.08) M/mm3 Hgb (13.7-17.5) gm/dl Hct (40.1-51.0) % MCV (79.0-92.2) fl MCH (25.7-32.2) pg MCHC (32.2-35.5) g/dl RDW Std Deviation (35.1-43.9) fL Plt Count (163-337) K/mm3 MPV (9.4-12.3) fl Neut % (Auto) (34.0-67.9) % Lymph % (Auto) (21.8-53.1) % [place] % (Auto) (5.3-12.2) % Eos % (Auto) (0.8-7.0) Baso % (Auto) (0.1-1.2) % Neut # (Auto) (1.78-5.38) K/mm3 Lymph # (Auto) (1.32-3.57) K/mm3 [place] # (Auto) (0.30-0.82) K/mm3 Eos # (Auto) (0.04-0.54) K/mm3 Baso # (Auto) (0.01-0.08) K/mm3 PT (9.7-12.0) SECONDS INR Sodium (136-145) mEq/L Potassium (3.5-5.1) mEq/L Chloride (98-107) mEq/L Carbon Dioxide (21-32) mEq/L Anion Gap (5-15) BUN (7-18) mg/dL Creatinine (0.7-1.3) mg/dL Est Cr Clr Drug Dosing mL/min Estimated GFR (MDRD) (>60) mL/min BUN/Creatinine Ratio (14-18) Glucose (70-99) mg/dL Calcium (8.5-10.1) mg/dL Magnesium (1.8-2.4) mg/dL Total Bilirubin (0.2-1.0) mg/dL AST (15-37) U/L ALT (16-63) U/L Alkaline Phosphatase (46-116) U/L Troponin I (0.00-0.056) ng/mL C-Reactive Protein (<1.0) mg/dL NT-Pro-B Natriuret Pep (0-450) pg/mL Total Protein (6.4-8.2) g/dl Albumin (3.4-5.0) g/dl Globulin gm/dL Albumin/Globulin Ratio (1-2) Urine Color Light yellow (Yellow) Urine Appearance Clear (Clear) Urine pH 7.0 (5.0-8.0) Ur Specific [place] 1.020 (1.005-1.030) Urine Protein Negative (Negative) Urine Glucose (UA) Negative (Negative) Urine Ketones Negative (Negative) Urine Occult Blood Negative (Negative) Urine Nitrite Negative (Negative) Urine Bilirubin Negative (Negative) Urine Urobilinogen 1.0 (0.2-1.0) Ur Leukocyte Esterase Negative (Negative) Urine RBC 0-5 (0-5) /hpf Urine WBC 0-5 (0-5) /hpf Ur Epithelial Cells Not seen (0-5) /hpf Urine Bacteria Rare (FEW) /hpf Urine Mucus Rare (FEW) /hpf SARS-CoV-2 RNA (SAMRA) (NEGATIVE) Result Diagrams: 09/17/20 08:15 09/17/20 08:15 Sepsis Event Note - Evaluation Sepsis Screening Result: No Definite Risk - Focused Exam Vital Signs: Vital Signs Temp Pulse Resp BP Pulse Ox 09/17/20 08:11 97.0 F 60 25 H 140/77 99 - Problem List (1) CHF (congestive heart failure) SNOMED Code(s): 18882862 ICD Code: I50.9 - HEART FAILURE, UNSPECIFIED Status: Acute Priority: High Current Visit: Yes Qualifiers: Heart failure type: unspecified Heart failure chronicity: acute on chronic Qualified Code(s): I50.9 - Heart failure, unspecified (2) COPD (chronic obstructive pulmonary disease) SNOMED Code(s): 30164017 ICD Code: J44.9 - CHRONIC OBSTRUCTIVE PULMONARY DISEASE, UNSPECIFIED Status: Chronic Priority: Medium Current Visit: No Qualifiers: COPD type: unspecified COPD Qualified Code(s): J44.9 - Chronic obstructive pulmonary disease, unspecified (3) Chronic renal insufficiency, stage III (moderate) SNOMED Code(s): 216065564 ICD Code: N18.30 - CHRONIC KIDNEY DISEASE, STAGE 3 UNSPECIFIED Status: Chronic Priority: Medium Current Visit: Yes Qualifiers: Chronic kidney disease stage 3 subtype: stage 3b (GFR 30-44) Qualified Code(s): N18.32 - Chronic kidney disease, stage 3b (4) Non-cardiac chest pain SNOMED Code(s): 689740381 ICD Code: R07.89 - OTHER CHEST PAIN Status: Acute Priority: Medium Current Visit: Yes (5) Supratherapeutic INR SNOMED Code(s): 217020853 ICD Code: R79.1 - ABNORMAL COAGULATION PROFILE Status: Acute Priority: Medium Current Visit: Yes (6) Heart murmur SNOMED Code(s): 77838886 ICD Code: R01.1 - CARDIAC MURMUR, UNSPECIFIED Status: Chronic Priority: Low Current Visit: No (7) H/O mechanical aortic valve replacement SNOMED Code(s): 444881786241729, 905768080, 561366189552266 ICD Code: Z95.2 - PRESENCE OF PROSTHETIC HEART VALVE Status: Chronic Priority: Low Current Visit: No (8) History of coronary artery stent placement SNOMED Code(s): 820695471, 714124250 ICD Code: Z95.5 - PRESENCE OF CORONARY ANGIOPLASTY IMPLANT AND GRAFT Status: Chronic Priority: Low Current Visit: No (9) HLD (hyperlipidemia) SNOMED Code(s): 73958309 ICD Code: E78.5 - HYPERLIPIDEMIA, UNSPECIFIED Status: Chronic Priority: Low Current Visit: No Qualifiers: Hyperlipidemia type: unspecified Qualified Code(s): E78.5 - Hyperlipidemia, unspecified (10) HTN (hypertension) SNOMED Code(s): 05238413 ICD Code: I10 - ESSENTIAL (PRIMARY) HYPERTENSION Status: Chronic Priority: Medium Current Visit: No Qualifiers: Hypertension type: unspecified Qualified Code(s): I10 - Essential (primary) hypertension (11) BPH (benign prostatic hyperplasia) SNOMED Code(s): 501574504 ICD Code: N40.0 - BENIGN PROSTATIC HYPERPLASIA WITHOUT LOWER URINRY TRACT SYMP Status: Chronic Priority: Low Current Visit: No Qualifiers: Lower urinary tract symptom presence: symptoms absent Qualified Code(s): N40.0 - Benign prostatic hyperplasia without lower urinary tract symptoms (12) History of bladder cancer SNOMED Code(s): 919004626, 593031915 ICD Code: Z85.51 - PERSONAL HISTORY OF MALIGNANT NEOPLASM OF BLADDER Status: Chronic Priority: Low Current Visit: No (13) Osteoarthritis SNOMED Code(s): 510959968 ICD Code: M19.90 - UNSPECIFIED OSTEOARTHRITIS, UNSPECIFIED SITE Status: Chronic Priority: Low Current Visit: No Qualifiers: Osteoarthritis location: unspecified site Osteoarthritis type: primary Qualified Code(s): M19.91 - Primary osteoarthritis, unspecified site (14) Acute exacerbation of CHF (congestive heart failure) SNOMED Code(s): 839319296, [id number] ICD Code: I50.9 - HEART FAILURE, UNSPECIFIED Status: Acute Priority: High Current Visit: Yes Qualifiers: Heart failure type: unspecified Qualified Code(s): I50.9 - Heart failure, unspecified (15) Hypokalemia SNOMED Code(s): 68351695 ICD Code: E87.6 - HYPOKALEMIA Status: Chronic Priority: Medium Current Visit: Yes (16) Elevated troponin SNOMED Code(s): 409281082, 547276414, 939174484 ICD Code: R77.8 - OTHER SPECIFIED ABNORMALITIES OF PLASMA PROTEINS Status: Chronic Priority: Medium Current Visit: Yes (17) Elevated brain natriuretic peptide (BNP) level SNOMED Code(s): 065411908, 422321650 ICD Code: R79.89 - OTHER SPECIFIED ABNORMAL FINDINGS OF BLOOD CHEMISTRY Status: Chronic Priority: High Current Visit: Yes Problem List Initiated/Reviewed/Updated: Yes Orders Last 24hrs: Active Orders 24 hr Category Date Time Status Admission Status [Patient Status] [ADT] Routine ADT 09/17/20 10:59 Active EKG Documentation Completion [RC] ASDIRECTED Care 09/17/20 10:10 Active Echo Comp wo Cont [US] Urgent Exams 09/17/20 11:11 Ordered Kidney Ultrasound [Retroperitoneal Comp] [US] Routine Exams 09/17/20 11:12 Ordered EKG 12 Lead [EK] Stat Ther 09/17/20 10:10 Ordered Assessment/Plan Comment:: Assessment - day of admission - 09/17/2020 * 80-year-old male presents to ED on 10/18/2020 with increased dyspnea on minimal exertion and pleuritic left-sided precordial chest pain that started earlier in the night. * History of heart murmur, mechanical heart aortic heart valve replacement in 2003, CHF, HLD, HTN, stent placement, COPD, BPH, bladder cancer, osteoarthritis * He reports a 2 to 3 pound weight gain over the past 3 to 4 days. * Currently on 60 mg of Lasix in the morning and 40 mg in the evening; Has been taking this as prescribed. * Notes mild diarrhea and associated upper GI upset with nausea but no vomiting. Denies any melena or hematochezia. * On Plavix and Coumadin due to chronic A. fib and recent stent placement. * 12-lead EKG is obtained showing atrial fibrillation with a rate of 54 to 86 bpm. There is left axis deviation and Q waves are noted in II, III, and aVF. Q waves are also noted in V3 and V4 with near Q waves in V5 and V6. T wave inversions noted in aVL and there is a prolonged QTC. * Labs were obtained: * WBC of 6.33. * Hemoglobin is 13.7. * Patient is normocytic. * Platelets are 191,000. * Neutrophils are elevated at 73.5%. * INR is high at 4.19. * Sodium is 139. * Potassium 4.3. * Chloride 103. * Carbon dioxide 26. * Anion gap is 14.3. * BUN is 27. Creatinine 1.8. GFR is 36. * Glucose is 187. * Calcium 9.1. * Total bilirubin 0.5. * AST is 21, ALT 26, alkaline phosphatase 82. * Troponin is 0.080. * Albumin is 3.8. * Protein is 7.2. * Magnesium is 2.2. * CRP is less than 0.2. * proBNP is 4164. * UA is obtained and is negative. * SARS Covid 2 RNA is negative. * Chest x-ray is obtained showing cardiomegaly with sternotomy wires and prosthetic heart valves. There is mild pulmonary vascular congestion noted, which may be chronic. 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 Feldman, manager database administration, at [facility] in [place]. Aortic valve was replaced in 2003 and his mechanical valve requiring Coumadin. * Per the patient his INR was actually above 5 a few days ago and he is currently on 2.5 mg of Coumadin daily. This was a decrease from 5 mg 2 days a week and 2.5 on the other days. Reports he had not taken his Coumadin yet today. * Given 1 mg of IV push bumetanide. He is also given 0.5 mg Dilaudid and 7.5 mg metoclopramide. * Admitted to the medical floor on telemetry for management of his CHF exacerbation and subsequent diuresis. PLAN: Acute exacerbation of CHF (congestive heart failure) CHF (congestive heart failure) Elevated troponin Elevated BNP * 60mg IVP Lasix at 1600 today and then re-assess lasix need in the AM * Strict monitoring of I&Os * 2gm sodium restriction * 2L fluid restriction for now * Echo ordered and pending * Telemetry * Daily weights * Hold home PO Lasix for now * Monitor electrolytes * IS * Trend Troponin Q6hr x3 (patient has history of elevated troponin and is s/p cardiac procedure) * Continue home cardiac meds as ordered * O2 as needed to keep saturations >92% * Bladder Tier consultation * PT/OT evaluation * CM/SW for discharge planning COPD (chronic obstructive pulmonary disease) * No acute concerns and not on any home medications * Monitor Chronic renal insufficiency, stage III (moderate) * Unsure of baseline - obtain old records * Avoid nephrotoxic meds whenever possible * Monitor daily labs * Check retroperitoneal US due to minimal output after diuretic. R/O obstruction Non-cardiac chest pain * Pain medications as needed Supratherapeutic INR Heart murmur H/O mechanical aortic valve replacement History of coronary artery stent placement * Pharmacy to dose warfarin * Daily INR * Continue home cardiac meds as ordered * Hold Plavix until INR WNL HLD (hyperlipidemia) * No acute concerns * Hold home niacin Hypokalemia * Continue home supplementation * Monitor labs * Anticipate lowering of potassium with diuresis HTN (hypertension) * Continue home BP/cardiac meds * Monitor vital signs * No acute concerns * Caution with diuresis BPH (benign prostatic hyperplasia) History of bladder cancer * No acute concerns * Monitor I&Os * Continue home flomax * Bladder scan PRN Osteoarthritis * No acute concerns Code status: DNR/DNI PCP: Shani Meza NP DVT prophylaxis: Home warfarin (supratherapeutic currently) Disposition: Patient mated for management of acute CHF exacerbation including diuresis. Likely length of stay 2 to 3 days. - Mortality Measure Prognosis:: Poor (Given patient's significant baseline CHF and other comorbid conditions patient's overall prognosis is poor.)
[2020-09-17] MEDS ORDERED: Docusate Sodium 100 MG Cap PO PRN (11:17)
[2020-09-17] MEDS ORDERED: Ondansetron 4 MG/2 ML SDV IV PRN (11:17)
[2020-09-17] MEDS ORDERED: Morphine 2 MG/ML SYRINGE IVPUSH PRN (11:17)
[2020-09-17] MEDS ORDERED: Acetaminophen 325 MG Tab PO PRN (11:17)
[2020-09-17] MEDS ORDERED: Nitroglycerin 0.4 MG Tab.SL SL PRN (11:26)
[2020-09-17] MEDS ORDERED: Calcium Carbonate 500 MG Tab.Chew PO PRN (11:26)
[2020-09-17] MEDS ORDERED: Furosemide 40 MG/4 ML VIAL IVPUSH ONE (16:00)
--- NOTE | 2020-09-17 16:01 | US ---
Renal ultrasound: Multiple real-time images of the kidneys were obtained. Comparison: Previous renal ultrasound of 05/13/14. Findings: Multiple small echogenic areas are seen within the cortex of the right kidney. These are not identified on previous exam and presumably represent small areas of fat. Left kidney is not optimally seen. There is no hydronephrosis or discrete mass being seen within either kidney. Resistivity indices are within normal limits for both kidneys. Right kidney length is 11.6 cm and left kidney length is 9.9 cm. Bladder volume is 193 mL and no post-void bladder volume could be obtained. Bilateral ureteral jets are seen. Impression: 1. Small echogenic areas within the cortex of the right kidney most likely representing minimal scattered areas of fat. 2. Resistivity indices are normal. 3. No additional abnormality is appreciated. Diagnostic code #2
[2020-09-17] MEDS ORDERED: Warfarin Sliding Scale PO SCH (18:00)
[2020-09-17] MEDS ORDERED: Clopidogrel 75 MG Tab PO SCH ×2 (18:00)
[2020-09-17] MEDS: Metoprolol Tartrate 25 MG Tab PO SCH (20:30)
[2020-09-17] MEDS: Tamsulosin 0.4 MG Cap.ER PO SCH (20:30)
[2020-09-18] MEDS: Clopidogrel 75 MG Tab PO SCH (08:16)
[2020-09-18] MEDS: Metoprolol Tartrate 25 MG Tab PO SCH ×2 (08:17→20:57)
[2020-09-18] MEDS: Potassium Chloride 20 MEQ Tab.ER PO SCH (08:19)
[2020-09-18] MEDS: Amiodarone 200 MG Tab PO SCH (08:19)
[2020-09-18] MEDS: Furosemide 20 MG/2 ML VIAL IVPUSH SCH ×3 (08:19→20:57)
[2020-09-18] MEDS: Aspirin 81 MG Tab.EC PO SCH (08:19)
--- NOTE | 2020-09-18 12:44 | PCM.PN ---
- General Info Date of Service: 09/18/20 Admission Dx/Problem (Free Text): Admission Diagnosis/Problem Admission Diagnosis/Problem Congestive heart failure, NYHA class 3 Subjective Update: patient had good urine output yesterday denies chest pain SOB has improved tolerating diet no nausea or vomiting - Patient Data Vitals - Most Recent: Last Vital Signs Temp 97.9 F 09/18/20 08:19 Pulse 77 09/18/20 08:19 Resp 16 09/18/20 08:19 BP 115/66 09/18/20 08:19 Pulse Ox 94 L 09/18/20 08:19 Weight - Most Recent: 204 lb 6.4 oz I&O - Last 24 Hours: Intake & Output 09/17/20 09/18/20 09/18/20 22:59 06:59 14:59 Intake Total 350 240 Output Total 400 1400 Balance -50 -1160 Lab Results Last 24 Hours: Laboratory Results - last 24 hr 09/17/20 09/17/20 09/18/20 Range/Units 14:05 20:10 06:15 WBC 5.40 (4.23-9.07) K/mm3 RBC 4.48 L (4.63-6.08) M/mm3 Hgb 13.2 L (13.7-17.5) gm/dl Hct 40.8 (40.1-51.0) % MCV 91.1 (79.0-92.2) fl MCH 29.5 (25.7-32.2) pg MCHC 32.4 (32.2-35.5) g/dl RDW Std Deviation 47.5 H (35.1-43.9) fL Plt Count 192 (163-337) K/mm3 MPV 9.8 (9.4-12.3) fl Neut % (Auto) 70.9 H (34.0-67.9) % Lymph % (Auto) 12.2 L (21.8-53.1) % Wilkinson % (Auto) 8.9 (5.3-12.2) % Eos % (Auto) 6.9 (0.8-7.0) Baso % (Auto) 0.9 (0.1-1.2) % Neut # (Auto) 3.83 (1.78-5.38) K/mm3 Lymph # (Auto) 0.66 L (1.32-3.57) K/mm3 Wilkinson # (Auto) 0.48 (0.30-0.82) K/mm3 Eos # (Auto) 0.37 (0.04-0.54) K/mm3 Baso # (Auto) 0.05 (0.01-0.08) K/mm3 PT (9.7-12.0) SECONDS INR Sodium (136-145) mEq/L Potassium (3.5-5.1) mEq/L Chloride (98-107) mEq/L Carbon Dioxide (21-32) mEq/L Anion Gap (5-15) BUN (7-18) mg/dL Creatinine (0.7-1.3) mg/dL Est Cr Clr Drug Dosing mL/min Estimated GFR (MDRD) (>60) mL/min BUN/Creatinine Ratio (14-18) Glucose (70-99) mg/dL Calcium (8.5-10.1) mg/dL Magnesium (1.8-2.4) mg/dL Total Bilirubin (0.2-1.0) mg/dL AST (15-37) U/L ALT (16-63) U/L Alkaline Phosphatase (46-116) U/L CK-MB (CK-2) 2.2 (0-3.6) ng/ml Troponin I 0.072 H* 0.085 H* (0.00-0.056) ng/mL Total Protein (6.4-8.2) g/dl Albumin (3.4-5.0) g/dl Globulin gm/dL Albumin/Globulin Ratio (1-2) 09/18/20 09/18/20 Range/Units 06:15 06:15 WBC (4.23-9.07) K/mm3 RBC (4.63-6.08) M/mm3 Hgb (13.7-17.5) gm/dl Hct (40.1-51.0) % MCV (79.0-92.2) fl MCH (25.7-32.2) pg MCHC (32.2-35.5) g/dl RDW Std Deviation (35.1-43.9) fL Plt Count (163-337) K/mm3 MPV (9.4-12.3) fl Neut % (Auto) (34.0-67.9) % Lymph % (Auto) (21.8-53.1) % Wilkinson % (Auto) (5.3-12.2) % Eos % (Auto) (0.8-7.0) Baso % (Auto) (0.1-1.2) % Neut # (Auto) (1.78-5.38) K/mm3 Lymph # (Auto) (1.32-3.57) K/mm3 Wilkinson # (Auto) (0.30-0.82) K/mm3 Eos # (Auto) (0.04-0.54) K/mm3 Baso # (Auto) (0.01-0.08) K/mm3 PT 36.4 H (9.7-12.0) SECONDS INR 3.49 Sodium 142 (136-145) mEq/L Potassium 4.2 (3.5-5.1) mEq/L Chloride 104 (98-107) mEq/L Carbon Dioxide 31 (21-32) mEq/L Anion Gap 11.2 (5-15) BUN 24 H (7-18) mg/dL Creatinine 1.6 H (0.7-1.3) mg/dL Est Cr Clr Drug Dosing 31.50 mL/min Estimated GFR (MDRD) 42 (>60) mL/min BUN/Creatinine Ratio 15.0 (14-18) Glucose 109 H (70-99) mg/dL Calcium 8.9 (8.5-10.1) mg/dL Magnesium 2.1 (1.8-2.4) mg/dL Total Bilirubin 0.6 (0.2-1.0) mg/dL AST 20 (15-37) U/L ALT 21 (16-63) U/L Alkaline Phosphatase 74 (46-116) U/L CK-MB (CK-2) (0-3.6) ng/ml Troponin I (0.00-0.056) ng/mL Total Protein 6.7 (6.4-8.2) g/dl Albumin 3.5 (3.4-5.0) g/dl Globulin 3.2 gm/dL Albumin/Globulin Ratio 1.1 (1-2) Med Orders - Current: Current Medications Acetaminophen (Acetaminophen 325 Mg Tab) 650 mg PO Q4H PRN PRN Reason: Pain (Mild 1-3)/fever Amiodarone HCl (Amiodarone 200 Mg Tab) 200 mg PO DAILY [facility] Last Admin: 09/18/20 08:19 Dose: 200 mg Documented by: Aspirin (Aspirin 81 Mg Tab.Ec) 81 mg PO QAM [facility] Last Admin: 09/18/20 08:19 Dose: 81 mg Documented by: Calcium Carbonate/Glycine (Calcium Carbonate 500 Mg Tab.Chew) 500 - 1,000 mg PO DAILY PRN PRN Reason: Heartburn Clopidogrel Bisulfate (Clopidogrel 75 Mg Tab) 75 mg PO DAILY [facility] Last Admin: 09/18/20 08:16 Dose: 75 mg Documented by: Docusate Sodium (Docusate Sodium 100 Mg Cap) 100 mg PO Q12H PRN PRN Reason: Constipation Furosemide (Furosemide 20 Mg/2 Ml Vial) 20 mg IVPUSH TID [facility] Last Admin: 09/18/20 08:19 Dose: 20 mg Documented by: Metoprolol Tartrate (Metoprolol Tartrate 25 Mg Tab) 25 mg PO BID [facility] Last Admin: 09/18/20 08:17 Dose: 25 mg Documented by: Nitroglycerin (Nitroglycerin 0.4 Mg Tab.Sl) 0.4 mg SL ASDIRECTED PRN PRN Reason: Chest Pain Ondansetron HCl (Ondansetron 4 Mg/2 Ml Sdv) 4 mg IV Q6H PRN PRN Reason: Nausea/Vomiting Potassium Chloride (Potassium Chloride 20 Meq Tab.Er) 20 meq PO DAILY [facility] Last Admin: 09/18/20 08:19 Dose: 20 meq Documented by: Tamsulosin HCl (Tamsulosin 0.4 Mg Cap.Er) 0.4 mg PO BEDTIME [facility] Last Admin: 09/17/20 20:30 Dose: 0.4 mg Documented by: Warfarin Sodium (Pharmacy To Dose - Warfarin) 1 dose .XX ASDIRECTED PRN PRN Reason: RX TO DOSE WARFARIN Warfarin Sodium (Warfarin Sliding Scale) 0 each PO QPM [facility] Stop: 09/18/20 18:01 Discontinued Medications Bumetanide (Bumetanide 1 Mg/4 Ml Mdv) 1 mg IVPUSH ONETIME ONE Stop: 09/17/20 10:58 Last Admin: 09/17/20 11:09 Dose: 1 mg Documented by: Clopidogrel Bisulfate (Clopidogrel 75 Mg Tab) 75 mg PO QPM [facility] Clopidogrel Bisulfate (Clopidogrel 75 Mg Tab) 75 mg PO QPM [facility] Last Admin: 09/18/20 08:25 Dose: Not Given Documented by: Furosemide (Furosemide 40 Mg/4 Ml Vial) 60 mg IVPUSH ONETIME ONE Stop: 09/17/20 16:01 Last Admin: 09/17/20 15:20 Dose: 60 mg Documented by: Hydromorphone HCl (Hydromorphone 0.5 Mg/0.5 Ml Syringe) 0.5 mg IVPUSH ONETIME ONE Stop: 09/17/20 08:36 Last Admin: 09/17/20 08:53 Dose: 0.5 mg Documented by: Metoclopramide HCl (Metoclopramide 10 Mg/2 Ml Sdv) 7.5 mg IVPUSH ONETIME ONE Stop: 09/17/20 08:34 Last Admin: 09/17/20 08:53 Dose: 7.5 mg Documented by: Morphine Sulfate (Morphine 2 Mg/Ml Syringe) 2 mg IVPUSH Q2H PRN PRN Reason: Pain (severe 7-10) Stop: 09/18/20 11:19 Warfarin Sodium (Warfarin Sliding Scale) 0 each PO QPM [facility] Stop: 09/17/20 18:01 Last Admin: 09/17/20 17:19 Dose: Not Given Documented by: - Exam Physical Findings Comments:: Gen: No acute distress HEENT: NCAT EOMI MMM CV: RRR normal s1 s2 Lungs: Diminished/crackles Abd: soft, nt, nd MSK: age apropriate muscle mass Neuro: Alert, oriented; nonfocal screening exam - Patient Data Lab Results Last 24 hrs: Laboratory Results - last 24 hr 09/17/20 09/17/20 09/18/20 Range/Units 14:05 20:10 06:15 WBC 5.40 (4.23-9.07) K/mm3 RBC 4.48 L (4.63-6.08) M/mm3 Hgb 13.2 L (13.7-17.5) gm/dl Hct 40.8 (40.1-51.0) % MCV 91.1 (79.0-92.2) fl MCH 29.5 (25.7-32.2) pg MCHC 32.4 (32.2-35.5) g/dl RDW Std Deviation 47.5 H (35.1-43.9) fL Plt Count 192 (163-337) K/mm3 MPV 9.8 (9.4-12.3) fl Neut % (Auto) 70.9 H (34.0-67.9) % Lymph % (Auto) 12.2 L (21.8-53.1) % Wilkinson % (Auto) 8.9 (5.3-12.2) % Eos % (Auto) 6.9 (0.8-7.0) Baso % (Auto) 0.9 (0.1-1.2) % Neut # (Auto) 3.83 (1.78-5.38) K/mm3 Lymph # (Auto) 0.66 L (1.32-3.57) K/mm3 Wilkinson # (Auto) 0.48 (0.30-0.82) K/mm3 Eos # (Auto) 0.37 (0.04-0.54) K/mm3 Baso # (Auto) 0.05 (0.01-0.08) K/mm3 PT (9.7-12.0) SECONDS INR Sodium (136-145) mEq/L Potassium (3.5-5.1) mEq/L Chloride (98-107) mEq/L Carbon Dioxide (21-32) mEq/L Anion Gap (5-15) BUN (7-18) mg/dL Creatinine (0.7-1.3) mg/dL Est Cr Clr Drug Dosing mL/min Estimated GFR (MDRD) (>60) mL/min BUN/Creatinine Ratio (14-18) Glucose (70-99) mg/dL Calcium (8.5-10.1) mg/dL Magnesium (1.8-2.4) mg/dL Total Bilirubin (0.2-1.0) mg/dL AST (15-37) U/L ALT (16-63) U/L Alkaline Phosphatase (46-116) U/L CK-MB (CK-2) 2.2 (0-3.6) ng/ml Troponin I 0.072 H* 0.085 H* (0.00-0.056) ng/mL Total Protein (6.4-8.2) g/dl Albumin (3.4-5.0) g/dl Globulin gm/dL Albumin/Globulin Ratio (1-2) 09/18/20 09/18/20 Range/Units 06:15 06:15 WBC (4.23-9.07) K/mm3 RBC (4.63-6.08) M/mm3 Hgb (13.7-17.5) gm/dl Hct (40.1-51.0) % MCV (79.0-92.2) fl MCH (25.7-32.2) pg MCHC (32.2-35.5) g/dl RDW Std Deviation (35.1-43.9) fL Plt Count (163-337) K/mm3 MPV (9.4-12.3) fl Neut % (Auto) (34.0-67.9) % Lymph % (Auto) (21.8-53.1) % Wilkinson % (Auto) (5.3-12.2) % Eos % (Auto) (0.8-7.0) Baso % (Auto) (0.1-1.2) % Neut # (Auto) (1.78-5.38) K/mm3 Lymph # (Auto) (1.32-3.57) K/mm3 Wilkinson # (Auto) (0.30-0.82) K/mm3 Eos # (Auto) (0.04-0.54) K/mm3 Baso # (Auto) (0.01-0.08) K/mm3 PT 36.4 H (9.7-12.0) SECONDS INR 3.49 Sodium 142 (136-145) mEq/L Potassium 4.2 (3.5-5.1) mEq/L Chloride 104 (98-107) mEq/L Carbon Dioxide 31 (21-32) mEq/L Anion Gap 11.2 (5-15) BUN 24 H (7-18) mg/dL Creatinine 1.6 H (0.7-1.3) mg/dL Est Cr Clr Drug Dosing 31.50 mL/min Estimated GFR (MDRD) 42 (>60) mL/min BUN/Creatinine Ratio 15.0 (14-18) Glucose 109 H (70-99) mg/dL Calcium 8.9 (8.5-10.1) mg/dL Magnesium 2.1 (1.8-2.4) mg/dL Total Bilirubin 0.6 (0.2-1.0) mg/dL AST 20 (15-37) U/L ALT 21 (16-63) U/L Alkaline Phosphatase 74 (46-116) U/L CK-MB (CK-2) (0-3.6) ng/ml Troponin I (0.00-0.056) ng/mL Total Protein 6.7 (6.4-8.2) g/dl Albumin 3.5 (3.4-5.0) g/dl Globulin 3.2 gm/dL Albumin/Globulin Ratio 1.1 (1-2) Result Diagrams: 09/18/20 06:15 09/18/20 06:15 Sepsis Event Note - Evaluation Sepsis Screening Result: No Definite Risk - Focused Exam Vital Signs: Vital Signs Temp Pulse Resp BP Pulse Ox 09/18/20 08:19 97.9 F 77 16 115/66 94 L 09/18/20 08:17 76 115/66 09/18/20 03:25 97.7 F 62 16 97/66 95 - Problem List Review Problem List Initiated/Reviewed/Updated: Yes - My Orders Last 24 Hours: My Active Orders 09/17/20 12:10 Resuscitation Status Routine 09/18/20 09:00 Clopidogrel [Plavix] 75 mg PO DAILY Furosemide [Lasix] 20 mg IVPUSH TID - Plan Plan:: Assessment - day of admission - 09/17/2020 * 80-year-old male presents to ED on 10/18/2020 with increased dyspnea on minimal exertion and pleuritic left-sided precordial chest pain that started earlier in the night. * History of heart murmur, mechanical heart aortic heart valve replacement in 2003, CHF, HLD, HTN, stent placement, COPD, BPH, bladder cancer, osteoarthritis * He reports a 2 to 3 pound weight gain over the past 3 to 4 days. * Currently on 60 mg of Lasix in the morning and 40 mg in the evening; Has been taking this as prescribed. * Notes mild diarrhea and associated upper GI upset with nausea but no vomiting. Denies any melena or hematochezia. * On Plavix and Coumadin due to chronic A. fib and recent stent placement. * 12-lead EKG is obtained showing atrial fibrillation with a rate of 54 to 86 bpm. There is left axis deviation and Q waves are noted in II, III, and aVF. Q waves are also noted in V3 and V4 with near Q waves in V5 and V6. T wave inversions noted in aVL and there is a prolonged QTC. * Labs were obtained: * WBC of 6.33. * Hemoglobin is 13.7. * Patient is normocytic. * Platelets are 191,000. * Neutrophils are elevated at 73.5%. * INR is high at 4.19. * Sodium is 139. * Potassium 4.3. * Chloride 103. * Carbon dioxide 26. * Anion gap is 14.3. * BUN is 27. Creatinine 1.8. GFR is 36. * Glucose is 187. * Calcium 9.1. * Total bilirubin 0.5. * AST is 21, ALT 26, alkaline phosphatase 82. * Troponin is 0.080. * Albumin is 3.8. * Protein is 7.2. * Magnesium is 2.2. * CRP is less than 0.2. * proBNP is 4164. * UA is obtained and is negative. * SARS Covid 2 RNA is negative. * Chest x-ray is obtained showing cardiomegaly with sternotomy wires and prosthetic heart valves. There is mild pulmonary vascular congestion noted, which may be chronic. 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 Aortic valve w as replaced in 2003 and his mechanical valve requiring Coumadin. * Per the patient his INR was actually above 5 a few days ago and he is currently on 2.5 mg of Coumadin daily. This was a decrease from 5 mg 2 days a week and 2.5 on the other days. Reports he had not taken his Coumadin yet today. * Given 1 mg of IV push bumetanide. He is also given 0.5 mg Dilaudid and 7.5 mg metoclopramide. * Admitted to the medical floor on telemetry for management of his CHF exacerbation and subsequent diuresis. PLAN: Acute exacerbation of CHF (congestive heart failure) CHF (congestive heart failure) Elevated troponin Elevated BNP * 60mg IVP Lasix at 1600 today and then re-assess lasix need in the AM * 7/3; continue IV lasix * Strict monitoring of I&Os * 2gm sodium restriction * 2L fluid restriction for now * Echo ordered and pending * Telemetry * Daily weights * Hold home PO Lasix for now * Monitor electrolytes * IS * Trend Troponin Q6hr x3 (patient has history of elevated troponin and is s/p cardiac procedure) * Continue home cardiac meds as ordered * O2 as needed to keep saturations >92% * Line Service Attendant consultation * PT/OT evaluation * CM/SW for discharge planning COPD (chronic obstructive pulmonary disease) * No acute concerns and not on any home medications * Monitor Chronic renal insufficiency, stage III (moderate) * Unsure of baseline * Avoid nephrotoxic meds whenever possible * Monitor daily labs * renal US completed * Cr improving from admission Non-cardiac chest pain * Pain medications as needed Supratherapeutic INR Heart murmur H/O mechanical aortic valve replacement History of coronary artery stent placement * Pharmacy to dose warfarin * Daily INR * resume plavix HLD (hyperlipidemia) * No acute concerns * Hold home niacin Hypokalemia * Continue home supplementation * Monitor labs * Anticipate lowering of potassium with diuresis HTN (hypertension) * Continue home BP/cardiac meds * Monitor vital signs * No acute concerns * Caution with diuresis BPH (benign prostatic hyperplasia) History of bladder cancer * No acute concerns * Monitor I&Os * Continue home flomax * Bladder scan PRN Osteoarthritis * No acute concerns Code status: DNR/DNI PCP: Shani Meza NP DVT prophylaxis: Home warfarin (supratherapeutic currently) Disposition: Patient admitted management of acute CHF exacerbation including diuresis. Likely length of stay 2 to 3 days.
[2020-09-18] MEDS ORDERED: Warfarin Sliding Scale PO SCH (18:00)
[2020-09-18] MEDS: Tamsulosin 0.4 MG Cap.ER PO SCH (20:56)
[2020-09-19] MEDS: Amiodarone 200 MG Tab PO SCH (08:45)
[2020-09-19] MEDS: Aspirin 81 MG Tab.EC PO SCH (08:47)
[2020-09-19] MEDS: Potassium Chloride 20 MEQ Tab.ER PO SCH (08:47)
[2020-09-19] MEDS: Metoprolol Tartrate 25 MG Tab PO SCH ×2 (08:49→20:15)
[2020-09-19] MEDS: Clopidogrel 75 MG Tab PO SCH (08:50)
[2020-09-19] MEDS: Furosemide 20 MG/2 ML VIAL IVPUSH SCH ×3 (08:54→20:16)
--- NOTE | 2020-09-19 11:35 | PCM.PN ---
- General Info Date of Service: 09/19/20 Admission Dx/Problem (Free Text): Admission Diagnosis/Problem Admission Diagnosis/Problem Congestive heart failure, NYHA class 3 Subjective Update: SOB is improving Denies chest pain urinating well -1300 ml over last 24 hours - and son at bedside - Patient Data Vitals - Most Recent: Last Vital Signs Temp 97.9 F 09/19/20 04:12 Pulse 74 09/19/20 08:49 Resp 18 09/19/20 04:12 BP 116/66 09/19/20 08:49 Pulse Ox 96 09/19/20 04:12 Weight - Most Recent: 203 lb 9.6 oz I&O - Last 24 Hours: Intake & Output 09/18/20 09/19/20 09/19/20 22:59 06:59 14:59 Intake Total 600 240 380 Output Total 1100 1400 Balance -500 -1160 380 Lab Results Last 24 Hours: Laboratory Results - last 24 hr 09/19/20 09/19/20 09/19/20 Range/Units 06:05 06:05 06:05 WBC 5.46 (4.23-9.07) K/mm3 RBC 4.55 L (4.63-6.08) M/mm3 Hgb 13.3 L (13.7-17.5) gm/dl Hct 41.2 (40.1-51.0) % MCV 90.5 (79.0-92.2) fl MCH 29.2 (25.7-32.2) pg MCHC 32.3 (32.2-35.5) g/dl RDW Std Deviation 46.3 H (35.1-43.9) fL Plt Count 190 (163-337) K/mm3 MPV 9.6 (9.4-12.3) fl Neut % (Auto) 70.1 H (34.0-67.9) % Lymph % (Auto) 12.8 L (21.8-53.1) % Mower % (Auto) 9.0 (5.3-12.2) % Eos % (Auto) 6.8 (0.8-7.0) Baso % (Auto) 1.1 (0.1-1.2) % Neut # (Auto) 3.83 (1.78-5.38) K/mm3 Lymph # (Auto) 0.70 L (1.32-3.57) K/mm3 Mower # (Auto) 0.49 (0.30-0.82) K/mm3 Eos # (Auto) 0.37 (0.04-0.54) K/mm3 Baso # (Auto) 0.06 (0.01-0.08) K/mm3 Manual Slide Review Normal smear PT 22.6 H D (9.7-12.0) SECONDS INR 2.14 Sodium 141 (136-145) mEq/L Potassium 4.2 (3.5-5.1) mEq/L Chloride 105 (98-107) mEq/L Carbon Dioxide 31 (21-32) mEq/L Anion Gap 9.2 (5-15) BUN 26 H (7-18) mg/dL Creatinine 1.6 H (0.7-1.3) mg/dL Est Cr Clr Drug Dosing 31.50 mL/min Estimated GFR (MDRD) 42 (>60) mL/min BUN/Creatinine Ratio 16.3 (14-18) Glucose 112 H (70-99) mg/dL Calcium 9.0 (8.5-10.1) mg/dL Magnesium 2.2 (1.8-2.4) mg/dL Total Bilirubin 0.6 (0.2-1.0) mg/dL AST 22 (15-37) U/L ALT 22 (16-63) U/L Alkaline Phosphatase 75 (46-116) U/L Total Protein 6.6 (6.4-8.2) g/dl Albumin 3.5 (3.4-5.0) g/dl Globulin 3.1 gm/dL Albumin/Globulin Ratio 1.1 (1-2) Med Orders - Current: Current Medications Acetaminophen (Acetaminophen 325 Mg Tab) 650 mg PO Q4H PRN PRN Reason: Pain (Mild 1-3)/fever Amiodarone HCl (Amiodarone 200 Mg Tab) 200 mg PO DAILY [facility] Last Admin: 09/19/20 08:45 Dose: 200 mg Documented by: Aspirin (Aspirin 81 Mg Tab.Ec) 81 mg PO QAM [facility] Last Admin: 09/19/20 08:47 Dose: 81 mg Documented by: Calcium Carbonate/Glycine (Calcium Carbonate 500 Mg Tab.Chew) 500 - 1,000 mg PO DAILY PRN PRN Reason: Heartburn Clopidogrel Bisulfate (Clopidogrel 75 Mg Tab) 75 mg PO DAILY [facility] Last Admin: 09/19/20 08:50 Dose: 75 mg Documented by: Docusate Sodium (Docusate Sodium 100 Mg Cap) 100 mg PO Q12H PRN PRN Reason: Constipation Furosemide (Furosemide 20 Mg/2 Ml Vial) 20 mg IVPUSH TID [facility] Last Admin: 09/19/20 08:54 Dose: 20 mg Documented by: Metoprolol Tartrate (Metoprolol Tartrate 25 Mg Tab) 25 mg PO BID [facility] Last Admin: 09/19/20 08:49 Dose: 25 mg Documented by: Nitroglycerin (Nitroglycerin 0.4 Mg Tab.Sl) 0.4 mg SL ASDIRECTED PRN PRN Reason: Chest Pain Ondansetron HCl (Ondansetron 4 Mg/2 Ml Sdv) 4 mg IV Q6H PRN PRN Reason: Nausea/Vomiting Potassium Chloride (Potassium Chloride 20 Meq Tab.Er) 20 meq PO DAILY [facility] Last Admin: 09/19/20 08:47 Dose: 20 meq Documented by: Tamsulosin HCl (Tamsulosin 0.4 Mg Cap.Er) 0.4 mg PO BEDTIME [facility] Last Admin: 09/18/20 20:56 Dose: 0.4 mg Documented by: Warfarin Sodium (Pharmacy To Dose - Warfarin) 1 dose .XX ASDIRECTED PRN PRN Reason: RX TO DOSE WARFARIN Warfarin Sodium (Warfarin 2.5 Mg Tab) 2.5 mg PO QPM [facility] Stop: 09/19/20 18:01 Discontinued Medications Bumetanide (Bumetanide 1 Mg/4 Ml Mdv) 1 mg IVPUSH ONETIME ONE Stop: 09/17/20 10:58 Last Admin: 09/17/20 11:09 Dose: 1 mg Documented by: Clopidogrel Bisulfate (Clopidogrel 75 Mg Tab) 75 mg PO QPM [facility] Clopidogrel Bisulfate (Clopidogrel 75 Mg Tab) 75 mg PO QPM [facility] Last Admin: 09/18/20 08:25 Dose: Not Given Documented by: Furosemide (Furosemide 40 Mg/4 Ml Vial) 60 mg IVPUSH ONETIME ONE Stop: 09/17/20 16:01 Last Admin: 09/17/20 15:20 Dose: 60 mg Documented by: Hydromorphone HCl (Hydromorphone 0.5 Mg/0.5 Ml Syringe) 0.5 mg IVPUSH ONETIME ONE Stop: 09/17/20 08:36 Last Admin: 09/17/20 08:53 Dose: 0.5 mg Documented by: Metoclopramide HCl (Metoclopramide 10 Mg/2 Ml Sdv) 7.5 mg IVPUSH ONETIME ONE Stop: 09/17/20 08:34 Last Admin: 09/17/20 08:53 Dose: 7.5 mg Documented by: Morphine Sulfate (Morphine 2 Mg/Ml Syringe) 2 mg IVPUSH Q2H PRN PRN Reason: Pain (severe 7-10) Stop: 09/18/20 11:19 Warfarin Sodium (Warfarin Sliding Scale) 0 each PO QPM [facility] Stop: 09/17/20 18:01 Last Admin: 09/17/20 17:19 Dose: Not Given Documented by: Warfarin Sodium (Warfarin Sliding Scale) 0 each PO QPM [facility] Stop: 09/18/20 18:01 Last Admin: 09/18/20 18:17 Dose: Not Given Documented by: - Exam Physical Findings Comments:: Gen: No acute distress HEENT: NCAT EOMI MMM CV: RRR normal s1 s2 Lungs: crackles at base imporved from yesterday Abd: soft, nt, nd MSK: age apropriate muscle mass Neuro: Alert, oriented; nonfocal screening exam Ext; 2+ b/l edema - Patient Data Lab Results Last 24 hrs: Laboratory Results - last 24 hr 09/19/20 09/19/20 09/19/20 Range/Units 06:05 06:05 06:05 WBC 5.46 (4.23-9.07) K/mm3 RBC 4.55 L (4.63-6.08) M/mm3 Hgb 13.3 L (13.7-17.5) gm/dl Hct 41.2 (40.1-51.0) % MCV 90.5 (79.0-92.2) fl MCH 29.2 (25.7-32.2) pg MCHC 32.3 (32.2-35.5) g/dl RDW Std Deviation 46.3 H (35.1-43.9) fL Plt Count 190 (163-337) K/mm3 MPV 9.6 (9.4-12.3) fl Neut % (Auto) 70.1 H (34.0-67.9) % Lymph % (Auto) 12.8 L (21.8-53.1) % Mower % (Auto) 9.0 (5.3-12.2) % Eos % (Auto) 6.8 (0.8-7.0) Baso % (Auto) 1.1 (0.1-1.2) % Neut # (Auto) 3.83 (1.78-5.38) K/mm3 Lymph # (Auto) 0.70 L (1.32-3.57) K/mm3 Mower # (Auto) 0.49 (0.30-0.82) K/mm3 Eos # (Auto) 0.37 (0.04-0.54) K/mm3 Baso # (Auto) 0.06 (0.01-0.08) K/mm3 Manual Slide Review Normal smear PT 22.6 H D (9.7-12.0) SECONDS INR 2.14 Sodium 141 (136-145) mEq/L Potassium 4.2 (3.5-5.1) mEq/L Chloride 105 (98-107) mEq/L Carbon Dioxide 31 (21-32) mEq/L Anion Gap 9.2 (5-15) BUN 26 H (7-18) mg/dL Creatinine 1.6 H (0.7-1.3) mg/dL Est Cr Clr Drug Dosing 31.50 mL/min Estimated GFR (MDRD) 42 (>60) mL/min BUN/Creatinine Ratio 16.3 (14-18) Glucose 112 H (70-99) mg/dL Calcium 9.0 (8.5-10.1) mg/dL Magnesium 2.2 (1.8-2.4) mg/dL Total Bilirubin 0.6 (0.2-1.0) mg/dL AST 22 (15-37) U/L ALT 22 (16-63) U/L Alkaline Phosphatase 75 (46-116) U/L Total Protein 6.6 (6.4-8.2) g/dl Albumin 3.5 (3.4-5.0) g/dl Globulin 3.1 gm/dL Albumin/Globulin Ratio 1.1 (1-2) Result Diagrams: 09/19/20 06:05 09/19/20 06:05 Sepsis Event Note - Evaluation Sepsis Screening Result: No Definite Risk - Focused Exam Vital Signs: Vital Signs Temp Pulse Resp BP Pulse Ox 09/19/20 08:49 74 116/66 09/19/20 04:21 124/81 09/19/20 04:12 97.9 F 93 18 92/66 96 09/18/20 23:54 97.9 F 71 13 111/69 95 - Problem List Review Problem List Initiated/Reviewed/Updated: Yes - Plan Plan:: Assessment - day of admission - 09/17/2020 * 80-year-old male presents to ED on 10/18/2020 with increased dyspnea on minimal exertion and pleuritic left-sided precordial chest pain that started earlier in the night. * History of heart murmur, mechanical heart aortic heart valve replacement in 2003, CHF, HLD, HTN, stent placement, COPD, BPH, bladder cancer, osteoarthritis * He reports a 2 to 3 pound weight gain over the past 3 to 4 days. * Currently on 60 mg of Lasix in the morning and 40 mg in the evening; Has been taking this as prescribed. * Notes mild diarrhea and associated upper GI upset with nausea but no vomiting. Denies any melena or hematochezia. * On Plavix and Coumadin due to chronic A. fib and recent stent placement. * 12-lead EKG is obtained showing atrial fibrillation with a rate of 54 to 86 bpm. There is left axis deviation and Q waves are noted in II, III, and aVF. Q waves are also noted in V3 and V4 with near Q waves in V5 and V6. T wave inversions noted in aVL and there is a prolonged QTC. * Labs were obtained: * WBC of 6.33. * Hemoglobin is 13.7. * Patient is normocytic. * Platelets are 191,000. * Neutrophils are elevated at 73.5%. * INR is high at 4.19. * Sodium is 139. * Potassium 4.3. * Chloride 103. * Carbon dioxide 26. * Anion gap is 14.3. * BUN is 27. Creatinine 1.8. GFR is 36. * Glucose is 187. * Calcium 9.1. * Total bilirubin 0.5. * AST is 21, ALT 26, alkaline phosphatase 82. * Troponin is 0.080. * Albumin is 3.8. * Protein is 7.2. * Magnesium is 2.2. * CRP is less than 0.2. * proBNP is 4164. * UA is obtained and is negative. * SARS Covid 2 RNA is negative. * Chest x-ray is obtained showing cardiomegaly with sternotomy wires and prosthetic heart valves. There is mild pulmonary vascular congestion noted, which may be chronic. 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 Aortic valve was replaced in 2003 and his mechanical valve requiring Coumadin. * Per the patient his INR was actually above 5 a few days ago and he is currently on 2.5 mg of Coumadin daily. This was a decrease from 5 mg 2 days a week and 2.5 on the other days. Reports he had not taken his Coumadin yet today. * Given 1 mg of IV push bumetanide. He is also given 0.5 mg Dilaudid and 7.5 mg metoclopramide. * Admitted to the medical floor on telemetry for management of his CHF exacerbation and subsequent diuresis. PLAN: Acute exacerbation of CHF (congestive heart failure) CHF (congestive heart failure) Elevated troponin Elevated BNP * 60mg IVP Lasix at 1600 date of admission and then re-assess lasix * 09/18; continue IV lasix * 09/19 continue IV lasix continues to diurese well; renal function /cr improving to 1.6 * Strict monitoring of I&Os * 2gm sodium restriction * 2L fluid restriction for now * Echo ordered and pending * Telemetry * Daily weights * Hold home PO Lasix for now * Monitor electrolytes * IS * Trend Troponin Q6hr x3 (patient has history of elevated troponin and is s/p cardiac procedure)->completed * Continue home cardiac meds as ordered * O2 as needed to keep saturations >92% * [employer] consultation * PT/OT evaluation * CM/SW for discharge planning COPD (chronic obstructive pulmonary disease) * No acute concerns and not on any home medications * Monitor Chronic renal insufficiency, stage III (moderate) * Unsure of baseline * Avoid nephrotoxic meds whenever possible * Monitor daily labs * renal US completed * Cr improving from admission Non-cardiac chest pain * Pain medications as needed Supratherapeutic INR Heart murmur H/O mechanical aortic valve replacement History of coronary artery stent placement * Pharmacy to dose warfarin * Daily INR * resume plavix 09/18 HLD (hyperlipidemia) * No acute concerns * Hold home niacin Hypokalemia * Continue home supplementation * Monitor labs * Anticipate lowering of potassium with diuresis HTN (hypertension) * Continue home BP/cardiac meds * Monitor vital signs * No acute concerns * Caution with diuresis BPH (benign prostatic hyperplasia) History of bladder cancer * No acute concerns * Monitor I&Os * Continue home flomax * Bladder scan PRN Osteoarthritis * No acute concerns Code status: DNR/DNI PCP: Shani Meza NP DVT prophylaxis: Home warfarin (supratherapeutic currently) Disposition: Patient admitted management of acute CHF exacerbation including diuresis. Likely length of stay 1-2 days.
[2020-09-19] MEDS ORDERED: Warfarin 2.5 MG Tab PO SCH (18:00)
[2020-09-19] MEDS: Tamsulosin 0.4 MG Cap.ER PO SCH (20:15)
[2020-09-20] MEDS: Clopidogrel 75 MG Tab PO SCH (08:06)
[2020-09-20] MEDS: Aspirin 81 MG Tab.EC PO SCH (08:06)
[2020-09-20] MEDS: Metoprolol Tartrate 25 MG Tab PO SCH ×2 (08:07→20:34)
[2020-09-20] MEDS: Potassium Chloride 20 MEQ Tab.ER PO SCH (08:07)
[2020-09-20] MEDS: Amiodarone 200 MG Tab PO SCH (08:07)
[2020-09-20] MEDS: Furosemide 40 MG Tab PO SCH (08:14)
--- NOTE | 2020-09-20 12:19 | PCM.PN ---
- General Info Date of Service: 09/20/20 Admission Dx/Problem (Free Text): Admission Diagnosis/Problem Admission Diagnosis/Problem Congestive heart failure, NYHA class 3 Functional Status: Reports: Pain Controlled, Tolerating Diet, Ambulating, Urinating, Incentive Spirometry. Denies: New Symptoms - Review of Systems General: Reports: No Symptoms. Denies: Fever, Weakness, Fatigue, Malaise, Chills HEENT: Reports: No Symptoms. Denies: Headaches, Sore Throat Pulmonary: Reports: No Symptoms. Denies: Shortness of Breath, Pleuritic Chest Pain, Cough, Sputum, Wheezing Cardiovascular: Reports: Edema (improved ). Denies: Chest Pain, Palpitations, Dyspnea on Exertion Gastrointestinal: Reports: No Symptoms. Denies: Abdominal Pain, Constipation, Diarrhea, Nausea, Vomiting Genitourinary: Reports: No Symptoms. Denies: Pain Musculoskeletal: Reports: No Symptoms Skin: Reports: No Symptoms. Denies: Cyanosis Neurological: Reports: No Symptoms. Denies: Confusion, Difficulty Walking, Weakness, Gait Disturbance Psychiatric: Reports: No Symptoms - Patient Data Vitals - Most Recent: Last Vital Signs Temp 97.7 F 09/20/20 11:16 Pulse 58 L 09/20/20 11:16 Resp 16 09/20/20 11:16 BP 109/64 09/20/20 11:41 Pulse Ox 96 09/20/20 11:16 Weight - Most Recent: 201 lb 9.6 oz I&O - Last 24 Hours: Intake & Output 09/19/20 09/20/20 09/20/20 22:59 06:59 14:59 Intake Total 1510 200 320 Output Total 900 Balance 1510 -700 320 Lab Results Last 24 Hours: Laboratory Results - last 24 hr 09/20/20 09/20/20 09/20/20 Range/Units 05:25 05:25 05:25 WBC 6.49 (4.23-9.07) K/mm3 RBC 4.88 (4.63-6.08) M/mm3 Hgb 14.4 (13.7-17.5) gm/dl Hct 43.9 (40.1-51.0) % MCV 90.0 (79.0-92.2) fl MCH 29.5 (25.7-32.2) pg MCHC 32.8 (32.2-35.5) g/dl RDW Std Deviation 46.8 H (35.1-43.9) fL Plt Count 229 (163-337) K/mm3 MPV 9.8 (9.4-12.3) fl Neut % (Auto) 67.8 (34.0-67.9) % Lymph % (Auto) 15.9 L (21.8-53.1) % [place] % (Auto) 8.0 (5.3-12.2) % Eos % (Auto) 7.1 H (0.8-7.0) Baso % (Auto) 0.9 (0.1-1.2) % Neut # (Auto) 4.40 (1.78-5.38) K/mm3 Lymph # (Auto) 1.03 L (1.32-3.57) K/mm3 [place] # (Auto) 0.52 (0.30-0.82) K/mm3 Eos # (Auto) 0.46 (0.04-0.54) K/mm3 Baso # (Auto) 0.06 (0.01-0.08) K/mm3 PT 16.7 H (9.7-12.0) SECONDS INR 1.57 Sodium 141 (136-145) mEq/L Potassium 3.9 (3.5-5.1) mEq/L Chloride 102 (98-107) mEq/L Carbon Dioxide 31 (21-32) mEq/L Anion Gap 11.9 (5-15) BUN 27 H (7-18) mg/dL Creatinine 1.6 H (0.7-1.3) mg/dL Est Cr Clr Drug Dosing 31.50 mL/min Estimated GFR (MDRD) 42 (>60) mL/min BUN/Creatinine Ratio 16.9 (14-18) Glucose 113 H (70-99) mg/dL Calcium 9.3 (8.5-10.1) mg/dL Magnesium 2.3 (1.8-2.4) mg/dL Total Bilirubin 0.7 (0.2-1.0) mg/dL AST 24 (15-37) U/L ALT 25 (16-63) U/L Alkaline Phosphatase 85 (46-116) U/L Total Protein 7.6 (6.4-8.2) g/dl Albumin 4.0 (3.4-5.0) g/dl Globulin 3.6 gm/dL Albumin/Globulin Ratio 1.1 (1-2) Med Orders - Current: Current Medications Acetaminophen (Acetaminophen 325 Mg Tab) 650 mg PO Q4H PRN PRN Reason: Pain (Mild 1-3)/fever Amiodarone HCl (Amiodarone 200 Mg Tab) 200 mg PO DAILY [facility] Last Admin: 09/20/20 08:07 Dose: 200 mg Documented by: Aspirin (Aspirin 81 Mg Tab.Ec) 81 mg PO QAM [facility] Last Admin: 09/20/20 08:06 Dose: 81 mg Documented by: Calcium Carbonate/Glycine (Calcium Carbonate 500 Mg Tab.Chew) 500 - 1,000 mg PO DAILY PRN PRN Reason: Heartburn Clopidogrel Bisulfate (Clopidogrel 75 Mg Tab) 75 mg PO DAILY [facility] Last Admin: 09/20/20 08:06 Dose: 75 mg Documented by: Docusate Sodium (Docusate Sodium 100 Mg Cap) 100 mg PO Q12H PRN PRN Reason: Constipation Furosemide (Furosemide 40 Mg Tab) 40 mg PO 1400 [facility] Furosemide (Furosemide 40 Mg Tab) 60 mg PO QAM [facility] Last Admin: 09/20/20 08:14 Dose: 60 mg Documented by: Lisinopril (Lisinopril 10 Mg Tab) 10 mg PO BEDTIME [facility] Metoprolol Tartrate (Metoprolol Tartrate 25 Mg Tab) 25 mg PO BID [facility] Last Admin: 09/20/20 08:07 Dose: 25 mg Documented by: Nitroglycerin (Nitroglycerin 0.4 Mg Tab.Sl) 0.4 mg SL ASDIRECTED PRN PRN Reason: Chest Pain Ondansetron HCl (Ondansetron 4 Mg/2 Ml Sdv) 4 mg IV Q6H PRN PRN Reason: Nausea/Vomiting Potassium Chloride (Potassium Chloride 20 Meq Tab.Er) 20 meq PO DAILY [facility] Last Admin: 09/20/20 08:07 Dose: 20 meq Documented by: Tamsulosin HCl (Tamsulosin 0.4 Mg Cap.Er) 0.4 mg PO BEDTIME [facility] Last Admin: 09/19/20 20:15 Dose: 0.4 mg Documented by: Warfarin Sodium (Pharmacy To Dose - Warfarin) 1 dose .XX ASDIRECTED PRN PRN Reason: RX TO DOSE WARFARIN Warfarin Sodium (Warfarin 2.5 Mg Tab) 2.5 mg PO QPM [facility] Stop: 09/20/20 18:01 Discontinued Medications Bumetanide (Bumetanide 1 Mg/4 Ml Mdv) 1 mg IVPUSH ONETIME ONE Stop: 09/17/20 10:58 Last Admin: 09/17/20 11:09 Dose: 1 mg Documented by: Clopidogrel Bisulfate (Clopidogrel 75 Mg Tab) 75 mg PO QPM [facility] Clopidogrel Bisulfate (Clopidogrel 75 Mg Tab) 75 mg PO QPM [facility] Last Admin: 09/18/20 08:25 Dose: Not Given Documented by: Furosemide (Furosemide 40 Mg/4 Ml Vial) 60 mg IVPUSH ONETIME ONE Stop: 09/17/20 16:01 Last Admin: 09/17/20 15:20 Dose: 60 mg Documented by: Furosemide (Furosemide 20 Mg/2 Ml Vial) 20 mg IVPUSH TID [facility] Last Admin: 09/19/20 20:16 Dose: 20 mg Documented by: Furosemide (Furosemide 40 Mg Tab) 60 mg PO QAM [facility] Hydromorphone HCl (Hydromorphone 0.5 Mg/0.5 Ml Syringe) 0.5 mg IVPUSH ONETIME ONE Stop: 09/17/20 08:36 Last Admin: 09/17/20 08:53 Dose: 0.5 mg Documented by: Metoclopramide HCl (Metoclopramide 10 Mg/2 Ml Sdv) 7.5 mg IVPUSH ONETIME ONE Stop: 09/17/20 08:34 Last Admin: 09/17/20 08:53 Dose: 7.5 mg Documented by: Morphine Sulfate (Morphine 2 Mg/Ml Syringe) 2 mg IVPUSH Q2H PRN PRN Reason: Pain (severe 7-10) Stop: 09/18/20 11:19 Warfarin Sodium (Warfarin Sliding Scale) 0 each PO QPM [facility] Stop: 09/17/20 18:01 Last Admin: 09/17/20 17:19 Dose: Not Given Documented by: Warfarin Sodium (Warfarin Sliding Scale) 0 each PO QPM [facility] Stop: 09/18/20 18:01 Last Admin: 09/18/20 18:17 Dose: Not Given Documented by: Warfarin Sodium (Warfarin 2.5 Mg Tab) 2.5 mg PO QPM [facility] Stop: 09/19/20 18:01 Last Admin: 09/19/20 17:54 Dose: 2.5 mg Documented by: - Exam Quality Assessment: DVT Prophylaxis. No: Supplemental Oxygen, Urine Catheter General: Alert, Oriented, Cooperative, No Acute Distress HEENT: Pupils Equal, Pupils Reactive, Mucous Membr. Moist/[place] Neck: Supple, Trachea Midline Lungs: Normal Respiratory Effort, Crackles (improving ) Cardiovascular: Regular Rate, Irregular Rhythm, Murmurs (systolic ) GI/Abdominal Exam: Normal Bowel Sounds, Soft, Non-Tender, No Distention, No Abnormal Bruit (Male) Exam: Deferred Back Exam: Normal Inspection, Full Range of Motion Extremities: Normal Inspection, Normal Range of Motion, Non-Tender, Normal Capillary Refill, Pedal Edema Peripheral Pulses: 2+: Radial (L), Radial (R) Skin: Warm, Dry, Intact, Ecchymosis (Scattered ) Neurological: No New Focal Deficit Psy/Mental Status: Alert, Normal Affect, Normal Mood - Patient Data Lab Results Last 24 hrs: Laboratory Results - last 24 hr 09/20/20 09/20/20 09/20/20 Range/Units 05:25 05:25 05:25 WBC 6.49 (4.23-9.07) K/mm3 RBC 4.88 (4.63-6.08) M/mm3 Hgb 14.4 (13.7-17.5) gm/dl Hct 43.9 (40.1-51.0) % MCV 90.0 (79.0-92.2) fl MCH 29.5 (25.7-32.2) pg MCHC 32.8 (32.2-35.5) g/dl RDW Std Deviation 46.8 H (35.1-43.9) fL Plt Count 229 (163-337) K/mm3 MPV 9.8 (9.4-12.3) fl Neut % (Auto) 67.8 (34.0-67.9) % Lymph % (Auto) 15.9 L (21.8-53.1) % [place] % (Auto) 8.0 (5.3-12.2) % Eos % (Auto) 7.1 H (0.8-7.0) Baso % (Auto) 0.9 (0.1-1.2) % Neut # (Auto) 4.40 (1.78-5.38) K/mm3 Lymph # (Auto) 1.03 L (1.32-3.57) K/mm3 [place] # (Auto) 0.52 (0.30-0.82) K/mm3 Eos # (Auto) 0.46 (0.04-0.54) K/mm3 Baso # (Auto) 0.06 (0.01-0.08) K/mm3 PT 16.7 H (9.7-12.0) SECONDS INR 1.57 Sodium 141 (136-145) mEq/L Potassium 3.9 (3.5-5.1) mEq/L Chloride 102 (98-107) mEq/L Carbon Dioxide 31 (21-32) mEq/L Anion Gap 11.9 (5-15) BUN 27 H (7-18) mg/dL Creatinine 1.6 H (0.7-1.3) mg/dL Est Cr Clr Drug Dosing 31.50 mL/min Estimated GFR (MDRD) 42 (>60) mL/min BUN/Creatinine Ratio 16.9 (14-18) Glucose 113 H (70-99) mg/dL Calcium 9.3 (8.5-10.1) mg/dL Magnesium 2.3 (1.8-2.4) mg/dL Total Bilirubin 0.7 (0.2-1.0) mg/dL AST 24 (15-37) U/L ALT 25 (16-63) U/L Alkaline Phosphatase 85 (46-116) U/L Total Protein 7.6 (6.4-8.2) g/dl Albumin 4.0 (3.4-5.0) g/dl Globulin 3.6 gm/dL Albumin/Globulin Ratio 1.1 (1-2) Result Diagrams: 09/20/20 05:25 09/20/20 05:25 Sepsis Event Note - Evaluation Sepsis Screening Result: No Definite Risk - Focused Exam Vital Signs: Vital Signs Temp Pulse Resp BP BP Pulse Ox 09/20/20 11:41 109/64 09/20/20 11:16 97.7 F 58 L 16 97/69 96 09/20/20 08:07 64 104/68 09/20/20 07:47 97.5 F 64 16 100/61 97 09/20/20 04:16 97.9 F 106 H 16 90/53 L 93 L - Problem List & Annotations (1) CHF (congestive heart failure) SNOMED Code(s): 69367576 Code(s): I50.9 - HEART FAILURE, UNSPECIFIED Status: Acute Priority: High Current Visit: Yes Qualifiers: Heart failure type: unspecified Heart failure chronicity: acute on chronic Qualified Code(s): I50.9 - Heart failure, unspecified (2) COPD (chronic obstructive pulmonary disease) SNOMED Code(s): 75102837 Code(s): J44.9 - CHRONIC OBSTRUCTIVE PULMONARY DISEASE, UNSPECIFIED Status: Chronic Priority: Medium Current Visit: No Qualifiers: COPD type: unspecified COPD Qualified Code(s): J44.9 - Chronic obstructive pulmonary disease, unspecified (3) Chronic renal insufficiency, stage III (moderate) SNOMED Code(s): 441119904 Code(s): N18.30 - CHRONIC KIDNEY DISEASE, STAGE 3 UNSPECIFIED Status: Chronic Priority: Medium Current Visit: Yes Qualifiers: Chronic kidney disease stage 3 subtype: stage 3b (GFR 30-44) Qualified Code(s): N18.32 - Chronic kidney disease, stage 3b (4) Non-cardiac chest pain SNOMED Code(s): 882724620 Code(s): R07.89 - OTHER CHEST PAIN Status: Acute Priority: Medium Current Visit: Yes (5) Supratherapeutic INR SNOMED Code(s): 271877710 Code(s): R79.1 - ABNORMAL COAGULATION PROFILE Status: Acute Priority: Medium Current Visit: Yes (6) Heart murmur SNOMED Code(s): 32547997 Code(s): R01.1 - CARDIAC MURMUR, UNSPECIFIED Status: Chronic Priority: Low Current Visit: No (7) H/O mechanical aortic valve replacement SNOMED Code(s): 557250276705114, 151512701, 010712731375062 Code(s): Z95.2 - PRESENCE OF PROSTHETIC HEART VALVE Status: Chronic Priority: Low Current Visit: No (8) History of coronary artery stent placement SNOMED Code(s): 904116828, 640495950 Code(s): Z95.5 - PRESENCE OF CORONARY ANGIOPLASTY IMPLANT AND GRAFT Status: Chronic Priority: Low Current Visit: No (9) HLD (hyperlipidemia) SNOMED Code(s): 73035392 Code(s): E78.5 - HYPERLIPIDEMIA, UNSPECIFIED Status: Chronic Priority: Low Current Visit: No Qualifiers: Hyperlipidemia type: unspecified Qualified Code(s): E78.5 - Hyperlipidemia, unspecified (10) HTN (hypertension) SNOMED Code(s): 52762172 Code(s): I10 - ESSENTIAL (PRIMARY) HYPERTENSION Status: Chronic Priority: Medium Current Visit: No Qualifiers: Hypertension type: unspecified Qualified Code(s): I10 - Essential (primary) hypertension (11) BPH (benign prostatic hyperplasia) SNOMED Code(s): 568076137 Code(s): N40.0 - BENIGN PROSTATIC HYPERPLASIA WITHOUT LOWER URINRY TRACT SYMP Status: Chronic Priority: Low Current Visit: No Qualifiers: Lower urinary tract symptom presence: symptoms absent Qualified Code(s): N40.0 - Benign prostatic hyperplasia without lower urinary tract symptoms (12) History of bladder cancer SNOMED Code(s): 325187503, 638189341 Code(s): Z85.51 - PERSONAL HISTORY OF MALIGNANT NEOPLASM OF BLADDER Status: Chronic Priority: Low Current Visit: No (13) Osteoarthritis SNOMED Code(s): 998037260 Code(s): M19.90 - UNSPECIFIED OSTEOARTHRITIS, UNSPECIFIED SITE Status: Chronic Priority: Low Current Visit: No Qualifiers: Osteoarthritis location: unspecified site Osteoarthritis type: primary Qualified Code(s): M19.91 - Primary osteoarthritis, unspecified site (14) Acute exacerbation of CHF (congestive heart failure) SNOMED Code(s): 460088874, 93311736195271 Code(s): I50.9 - HEART FAILURE, UNSPECIFIED Status: Acute Priority: High Current Visit: Yes Qualifiers: Heart failure type: unspecified Qualified Code(s): I50.9 - Heart failure, unspecified (15) Hypokalemia SNOMED Code(s): 49128909 Code(s): E87.6 - HYPOKALEMIA Status: Chronic Priority: Medium Current Visit: Yes (16) Elevated troponin SNOMED Code(s): 812427467, 577244621, 817479706 Code(s): R77.8 - OTHER SPECIFIED ABNORMALITIES OF PLASMA PROTEINS Status: Chronic Priority: Medium Current Visit: Yes (17) Elevated brain natriuretic peptide (BNP) level SNOMED Code(s): 800222063, 041442719 Code(s): R79.89 - OTHER SPECIFIED ABNORMAL FINDINGS OF BLOOD CHEMISTRY Status: Chronic Priority: High Current Visit: Yes - Problem List Review Problem List Initiated/Reviewed/Updated: Yes - My Orders Last 24 Hours: My Active Orders 09/20/20 09:00 Furosemide [Lasix] 60 mg PO QAM 09/20/20 14:00 Furosemide [Lasix] 40 mg PO 1400 09/20/20 18:00 Warfarin [Coumadin] 2.5 mg PO QPM 09/20/20 21:00 lisinopriL [Prinivil] 10 mg PO BEDTIME 09/21/20 05:11 CBC WITH AUTO DIFF [HEME] AM COMPREHENSIVE METABOLIC PN,CMP [CHEM] AM INR,PT,PROTHROMBIN TIME [COAG] AM MAGNESIUM [CHEM] AM 09/22/20 05:11 INR,PT,PROTHROMBIN TIME [COAG] AM - Assessment Assessment:: Assessment - day of admission - 09/17/2020 * 80-year-old male presents to ED on 10/18/2020 with increased dyspnea on minimal exertion and pleuritic left-sided precordial chest pain that started earlier in the night. * History of heart murmur, mechanical heart aortic heart valve replacement in 06 07, CHF, HLD, HTN, stent placement, COPD, BPH, bladder cancer, osteoarthritis * He reports a 2 to 3 pound weight gain over the past 3 to 4 days. * Currently on 60 mg of Lasix in the morning and 40 mg in the evening; Has been taking this as prescribed. * Notes mild diarrhea and associated upper GI upset with nausea but no vomiting. Denies any melena or hematochezia. * On Plavix and Coumadin due to chronic A. fib and recent stent placement. * 12-lead EKG is obtained showing atrial fibrillation with a rate of 54 to 86 bpm. There is left axis deviation and Q waves are noted in II, III, and aVF. Q waves are also noted in V3 and V4 with near Q waves in V5 and V6. T wave inversions noted in aVL and there is a prolonged QTC. * Labs were obtained: * WBC of 6.33. * Hemoglobin is 13.7. * Patient is normocytic. * Platelets are 191,000. * Neutrophils are elevated at 73.5%. * INR is high at 4.19. * Sodium is 139. * Potassium 4.3. * Chloride 103. * Carbon dioxide 26. * Anion gap is 14.3. * BUN is 27. Creatinine 1.8. GFR is 36. * Glucose is 187. * Calcium 9.1. * Total bilirubin 0.5. * AST is 21, ALT 26, alkaline phosphatase 82. * Troponin is 0.080. * Albumin is 3.8. * Protein is 7.2. * Magnesium is 2.2. * CRP is less than 0.2. * proBNP is 4164. * UA is obtained and is negative. * SARS Covid 2 RNA is negative. * Chest x-ray is obtained showing cardiomegaly with sternotomy wires and prosthetic heart valves. There is mild pulmonary vascular congestion noted, which may be chronic. 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 Aortic valve was replaced in 2003 and his mechanical valve requiring Coumadin. * Per the patient his INR was actually above 5 a few days ago and he is currently on 2.5 mg of Coumadin daily. This was a decrease from 5 mg 2 days a week and 2.5 on the other days. Reports he had not taken his Coumadin yet today. * Given 1 mg of IV push bumetanide. He is also given 0.5 mg Dilaudid and 7.5 mg metoclopramide. * Admitted to the medical floor on telemetry for management of his CHF exacerbation and subsequent diuresis. 09/18/2020 patient had good urine output yesterday denies chest pain SOB has improved tolerating diet no nausea or vomiting 09/19/2020 SOB is improving Denies chest pain urinating well -1300 ml over last 24 hours - and son at bedside 09/20/2020 This is an 80-year-old male admitted to the floor for diuresis from a CHF e xacerbation. Patient was also noted to be supratherapeutic with an INR of 4.19 on admission. It is reported that he has been running on the high side at times. Pharmacy has been dosing his warfarin and this was held resulting in an INR of 1.57 today. Did discuss with pharmacy and they have been reinitiating his dosing so we anticipate an increase tomorrow. Renal ultrasound was obtained and showed small echogenic areas within the cortex of the right kidney most likely representing minimal scattered areas of fat. Resistivity indices are normal and no abnormalities appreciated. Echocardiogram obtained on 09-17-2020 interpreted as 1. The study was performed with the patient in atrial fibril lation/flutter. 2. Left ventricular internal cavity size is normal. 3. Normal left ventricular systolic function. 4. Left ventricular ejection fraction, by visual estimation, is 55 to 60%. 5. Moderately concentric left ventricular hypertrophy. 6. Severe dilated left atrium. 7. Right ventricular size is normal. 8. Mildly reduced right ventricular systolic function. 9. The aortic valve is not well visualized. 10. [employer] medical standard bileaflet mechanical valve is visualized in the aortic position. 11. The AOV prosthesis manufacture reported size is 23 mm. 12. The mean gradient across the 23 mm [employer] mechanical valve in the aortic position is 8 mmHg. The published normal is 13.55.6. 13. Normal structure and function of the aortic prosthesis. 14. Typical prosthetic aortic valve regurgitation. 15. The mitral valve is not well-visualized. 16. Mild mitral valve regurgitation. 17. The tricuspid valve is not well visualized. 18. Trace tricuspid valve regurgitation. 19. The inferior vena cava is abnormal. 20. The inferior vena cava is dilated with respiratory size variation less than 50%, consistent with elevated right atrial pressure. 21. The right ventricular systolic pressure is mild to moderately elevated at 40.0 mmHgOtherwise has been doing quite well. His creatinine has been holding steady at 1.6. Troponins were obtained and were steady on admi ssion. 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 Blood pressures have been on the softer side in the low 100s and upper 90s systolic. Per the patient and his this is where he normally runs. He is down 13 pounds. We are continuing a low sodium and 2 L fluid restriction. Plan will be to resume patient's home Lasix dosing and lisinopril and monitor blood pressures. Patient will need cardiology follow-up after discharge. Otherwise he reports he feels quite good. He has been up ambulating without difficulty. Oxygen saturations have been in the high 90s. Denies any current pain. Plan will be to recheck labs in the morning and if things continue to look good with his vital signs we will plan for discharge. - Plan Plan:: Acute exacerbation of CHF (congestive heart failure) CHF (congestive heart failure) Elevated troponin Elevated BNP * 60mg IVP Lasix at 1600 date of admission and then re-assess lasix * 09/18; continue IV lasix * 09/19 continue IV lasix continues to diurese well; renal function /cr improving to 1.6 * 09/20/2020: resume home Lasix dosing * Strict monitoring of I&Os * 2gm sodium restriction * 2L fluid restriction for now * Telemetry * Daily weights * Monitor electrolytes * IS * Trend Troponin Q6hr x3 (patient has history of elevated troponin and is s/p cardiac procedure)->completed * Continue home cardiac meds as ordered * O2 as needed to keep saturations >92% * Credit Investigator consultation * PT/OT evaluation * CM/SW for discharge planning COPD (chronic obstructive pulmonary disease) * No acute concerns and not on any home medications * Monitor Chronic renal insufficiency, stage III (moderate) * Unsure of baseline * Avoid nephrotoxic meds whenever possible * Monitor daily labs * Renal US completed * Cr improving from admission Non-cardiac chest pain * Pain medications as needed Supratherapeutic INR Heart murmur H/O mechanical aortic valve replacement History of coronary artery stent placement * Pharmacy to dose warfarin * Daily INR * resume plavix 09/18 HLD (hyperlipidemia) * No acute concerns * Hold home niacin Hypokalemia * Continue home supplementation * Monitor labs * Anticipate lowering of potassium with diuresis HTN (hypertension) * Continue home BP/cardiac meds * Monitor vital signs * No acute concerns * Caution with diuresis BPH (benign prostatic hyperplasia) History of bladder cancer * No acute concerns * Monitor I&Os * Continue home flomax * Bladder scan PRN Osteoarthritis * No acute concerns Code status: DNR/DNI PCP: Shani Meza NP DVT prophylaxis: Home warfarin Disposition: Patient admitted management of acute CHF exacerbation including diuresis. Likely discharge tomorrow
[2020-09-20] MEDS ORDERED: Furosemide 40 MG Tab PO SCH (14:00)
[2020-09-20] MEDS ORDERED: Warfarin 2.5 MG Tab PO SCH (18:00)
[2020-09-20] MEDS: Tamsulosin 0.4 MG Cap.ER PO SCH (20:35)
[2020-09-20] MEDS ORDERED: Lisinopril 10 MG Tab PO SCH (21:00)
[2020-09-21] MEDS ORDERED: Furosemide 40 MG Tab PO SCH (08:00)
[2020-09-21] MEDS: Furosemide 40 MG Tab PO SCH (08:04)
[2020-09-21] MEDS: Clopidogrel 75 MG Tab PO SCH (08:04)
[2020-09-21] MEDS: Amiodarone 200 MG Tab PO SCH (08:04)
[2020-09-21] MEDS: Aspirin 81 MG Tab.EC PO SCH (08:04)
[2020-09-21] MEDS: Metoprolol Tartrate 25 MG Tab PO SCH (08:05)
[2020-09-21] MEDS: Potassium Chloride 20 MEQ Tab.ER PO SCH (08:06)
[2020-09-21 08:07] VITALS: BP 105/68; PULSE 71
--- NOTE | 2020-09-21 10:19 | PCM.DCSUM1 ---
Discharge Summary - Hospital Course HPI Initial Comments: This is an 80-year-old male presents to ED on 10-18-2020 accompanied by his with increased dyspnea on minimal exertion and pleuritic left-sided precordial chest pain that started earlier in the night. He reports a 2 to 3 pound weight gain over the past 3 to 4 days. He does have a history of terminal congestive heart failure and is currently on 60 mg of Lasix in the morning and 40 mg in the evening. He reports he has been taking this as prescribed. He notes mild diarrhea and associated upper GI upset with nausea but no vomiting. Denies any melena or hematochezia. Patient is on Plavix and Coumadin due to chronic A. fib and recent stent placement. In the ED twelve-lead EKG is obtained showing atrial fibrillation with a rate of 54 to 86 bpm. There is left axis deviation and Q waves are noted in II, III, and aVF. Q waves are also noted in V3 and V4 with near Q waves in V5 and V6. T wave inversions noted in aVL and there is a prolonged QTC. Temp is 36.1 Celsius. Pulse 60. Respirations 25. Blood pressure 140/77. Pulse ox 99% on room air. Labs were obtained with a WBC of 6.33. Hemoglobin is 13.7. Patient is normocytic. Platelets are 191,000. Neutrophils are elevated at 73.5%. INR is high at 4.19. Sodium is 139. Potassium 4.3. Chloride 103. Carbon dioxide 26. Anion gap is 14.3. BUN is 27. Creatinine 1.8. GFR is 36. Glucose is 187. Calcium 9.1. Total bilirubin 0.5. AST is 21, ALT 26, alkaline phosphatase 82. Troponin is 0.080. Albumin is 3.8. Protein is 7.2. Magnesium is 2.2. CRP is less than 0.2. proBNP is 4164. UA is obtained and is negative. SARS Covid 2 RNA is negative. Chest x-ray is obtained showing cardiomegaly with sternotomy wires and prosthetic heart valves. There is mild pulmonary vascular congestion noted, which may be chronic. Patient is noted to have 2 stents placed in 1 vessel angioplasty carried out [address] Feldman, stone repairer, at [facility] in [place]. Aortic valve was replaced in 2003 and his mechanical valve requiring Coumadin. Per the patient his INR was actually above 5 a few days ago and he is currently on 2.5 mg of Coumadin daily. This was a decrease from 5 mg 2 days a week and 2.5 on the other days. Reports he had not taken his Coumadin yet today. He is given 1 mg of IV push bumetanide. He is also given 0.5 mg Dilaudid and 7.5 mg metoclopramide. He subsequently admitted to the medical floor on telemetry for management of his CHF exacerbation and subsequent diuresis. He carries a history of heart murmur, mechanical heart aortic heart valve replacement in 2003, CHF, HLD, HTN, stent placement, COPD, BPH, bladder cancer, osteoarthritis. He was never a smoker. He is a DNR/DNI. His PCP is Shani Meza NP. Diagnosis: Stroke: No - Discharge Data Discharge Date: 09/21/20 (Admit date: 09/17/2020) Discharge Disposition: Home, Self-Care 01 Condition: Good - Referral to Home Health Primary Care Physician: Shani Meza NP - Discharge Diagnosis/Problem(s) (1) CHF (congestive heart failure) SNOMED Code(s): 33578621 ICD Code: I50.9 - HEART FAILURE, UNSPECIFIED Status: Acute Priority: High Qualifiers: Heart failure type: unspecified Heart failure chronicity: acute on chronic Qualified Code(s): I50.9 - Heart failure, unspecified (2) COPD (chronic obstructive pulmonary disease) SNOMED Code(s): 25591338 ICD Code: J44.9 - CHRONIC OBSTRUCTIVE PULMONARY DISEASE, UNSPECIFIED Status: Chronic Priority: Medium Qualifiers: COPD type: unspecified COPD Qualified Code(s): J44.9 - Chronic obstructive pulmonary disease, unspecified (3) Chronic renal insufficiency, stage III (moderate) SNOMED Code(s): 521775060 ICD Code: N18.30 - CHRONIC KIDNEY DISEASE, STAGE 3 UNSPECIFIED Status: Chronic Priority: Medium Qualifiers: Chronic kidney disease stage 3 subtype: stage 3b (GFR 30-44) Qualified Code(s): N18.32 - Chronic kidney disease, stage 3b (4) Non-cardiac chest pain SNOMED Code(s): 931618606 ICD Code: R07.89 - OTHER CHEST PAIN Status: Resolved Priority: Medium (5) Supratherapeutic INR SNOMED Code(s): 307486741 ICD Code: R79.1 - ABNORMAL COAGULATION PROFILE Status: Resolved Priority: Medium (6) Heart murmur SNOMED Code(s): 60121557 ICD Code: R01.1 - CARDIAC MURMUR, UNSPECIFIED Status: Chronic Priority: Low (7) H/O mechanical aortic valve replacement SNOMED Code(s): 006346113676510, 463794427, 232064115166267 ICD Code: Z95.2 - PRESENCE OF PROSTHETIC HEART VALVE Status: Chronic Priority: Low (8) History of coronary artery stent placement SNOMED Code(s): 106255222, 241091825 ICD Code: Z95.5 - PRESENCE OF CORONARY ANGIOPLASTY IMPLANT AND GRAFT Status: Chronic Priority: Low (9) HLD (hyperlipidemia) SNOMED Code(s): 07799410 ICD Code: E78.5 - HYPERLIPIDEMIA, UNSPECIFIED Status: Chronic Priority: Low Qualifiers: Hyperlipidemia type: unspecified Qualified Code(s): E78.5 - Hyperlipidemia, unspecified (10) HTN (hypertension) SNOMED Code(s): 29308686 ICD Code: I10 - ESSENTIAL (PRIMARY) HYPERTENSION Status: Chronic Priority: Medium Qualifiers: Hypertension type: unspecified Qualified Code(s): I10 - Essential (primary) hypertension (11) BPH (benign prostatic hyperplasia) SNOMED Code(s): 556361442 ICD Code: N40.0 - BENIGN PROSTATIC HYPERPLASIA WITHOUT LOWER URINRY TRACT SYMP Status: Chronic Priority: Low Qualifiers: Lower urinary tract symptom presence: symptoms absent Qualified Code(s): N40.0 - Benign prostatic hyperplasia without lower urinary tract symptoms (12) History of bladder cancer SNOMED Code(s): 081604618, 481899420 ICD Code: Z85.51 - PERSONAL HISTORY OF MALIGNANT NEOPLASM OF BLADDER Status: Chronic Priority: Low (13) Osteoarthritis SNOMED Code(s): 829309467 ICD Code: M19.90 - UNSPECIFIED OSTEOARTHRITIS, UNSPECIFIED SITE Status: Chronic Priority: Low Qualifiers: Osteoarthritis location: unspecified site Osteoarthritis type: primary Qualified Code(s): M19.91 - Primary osteoarthritis, unspecified site (14) Acute exacerbation of CHF (congestive heart failure) SNOMED Code(s): 885023230, 79317953969971 ICD Code: I50.9 - HEART FAILURE, UNSPECIFIED Status: Acute Priority: High Qualifiers: Heart failure type: unspecified Qualified Code(s): I50.9 - Heart failure, unspecified (15) Hypokalemia SNOMED Code(s): 42164373 ICD Code: E87.6 - HYPOKALEMIA Status: Chronic Priority: Medium (16) Elevated troponin SNOMED Code(s): 655818463, 267486166, 794917743 ICD Code: R77.8 - OTHER SPECIFIED ABNORMALITIES OF PLASMA PROTEINS Status: Chronic Priority: Medium (17) Elevated brain natriuretic peptide (BNP) level SNOMED Code(s): 920127329, 341516816 ICD Code: R79.89 - OTHER SPECIFIED ABNORMAL FINDINGS OF BLOOD CHEMISTRY Status: Chronic Priority: High (18) Chronic anticoagulation SNOMED Code(s): 983660348 ICD Code: Z79.01 - EXPANDER MACHINE OPERATOR (CURRENT) USE OF ANTICOAGULANTS Status: Chronic Priority: Medium - Patient Summary/Data Consults: Consultations 09/17/20 11:17 Consult to Case Management/Retail Pharmacy Merchandiser [CONS] Routine Consult to Printing Press Machinist [CONS] Routine Consult to Spiritual Care [CONS] Routine 09/17/20 11:20 OT Evaluation and Treatment [CONS] Routine PT Evaluation and Treatment [CONS] Routine Labs Pending at D/C: None Recommended Follow-up Testing/Procedures: Follow-up with primary care provider within 7 to 10 days of discharge, sooner if needed. -Patient instructed to weigh himself daily and record this in a journal. Please review weight journal. -Patient instructed to check his blood pressure twice daily and record this in a journal. Please review this journal -No new home medications at discharge. -Recommend repeat CBC, CMP, and magnesium at follow-up. -Repeat INR ordered for 09/24/2020- Please review. Follow-up with stone repairer, Dr. Feldman, at next available. Hospital Course: This is an 80-year-old male who presented to ED on 09-17-2020 with increased dyspnea on minimal exertion and pleuritic left-sided precordial chest pain which started earlier in that night. He carries a history of heart murmur with mechanical aortic heart valve replacement in 2003, CHF, HLD, hypertension, stent placement, COPD, BPH, bladder cancer, and osteoarthritis. In the ED he was reporting a 2 to 3 pound weight gain over the past 3 to 4 days. He is on 60 mg of Lasix in the morning and 40 mg at night and reports he has been taking this as prescribed. He is on Plavix and Coumadin due to chronic A. fib and recent stent placement. There were no signs of any infection. He was admitted to the hospital floor diuresis. He was given Bumex in the ED and IV push Lasix while here. Noted to have a 13 pound weight loss with resolution of his symptoms. Echocardiogram was obtained on 09-17-2020 and interpreted as: 1. The study was performed with the patient in atrial fibrillation/flutter. 2. Left ventricular internal cavity size is normal. 3. Normal left ventricular systolic function. 4. Left ventricular ejection fraction, by visual estimation, is 55 to 60%. 5. Moderately concentric left ventricular hypertrophy. 6. Severe dilated left atrium. 7. Right ventricular size is normal. 8. Mildly reduced right ventricular systolic function. 9. The aortic valve is not well visualized. 10. [employer] medical standard bileaflet mechanical valve is visualized in the aortic position. 11. The AOV prosthesis manufacture reported size is 23 mm. 12. The mean gradient across the 23 mm [facility] [employer] mechanical valve in the aortic position is 8 mmHg. The published normal is 13.55.6. 13. Normal structure and function of the aortic prosthesis. 14. Typical prosthetic aortic valve regurgitation. 15. The mitral valve is not well-visualized. 16. Mild mitral valve regurgitation. 17. The tricuspid valve is not well visualized. 18. Trace tricuspid valve regurgitation. 19. The inferior vena cava is abnormal. 20. The inferior vena cava is dilated with respiratory size variation less than 50%, consistent with elevated right atrial pressure. 21. The right ventricular systolic pressure is mild to moderately elevated at 40.0 mmHg. Patient was also noted to be supratherapeutic with an INR of 4.19 on admission. It is reported that he has been running on the high side at times. Pharmacy has been dosing his warfarin and this was held resulting in an INR of 1.58 today. Pharmacy was dosing the patient's warfarin and did recommend resumption of home dosing at discharge. Recheck of INR has been ordered for 09/24/2020 with results to patient's primary care provider. Renal ultrasound was obtained and showed small echogenic areas within the cortex of the right kidney most likely representing minimal scattered areas of fat. Resistivity indices are normal and no abnormalities appreciated. Echocardiogram obtained on 09-17-2020 Otherwise has been doing quite well. His creatinine has been holding steady at 1.6. Troponins were obtained and were steady on admission. 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 Blood pressures have been on the softer side in the low 100s and upper 90s systolic. Per the patient and his this is where he normally runs. He has been up ambulating and did work with PT and OT were recommending home with no further services. He will be discharged on a sodium restricted diet and our dietitian did see him and his to discuss this. He transitioned from IV Lasix back to his home dosing and his blood pressure remained steady. He will be discharged on his home medications with no change. Recommend follow-up with primary care provider within 7 to 10 days of di scharge, sooner if needed. Recommend recheck CBC, CMP, and magnesium at that visit. Patient was instructed to weigh himself daily and record this in a journal. Please review this journal. He was also instructed to take his blood pressure twice a day and record this in a journal. Please review this journal. Patient was instructed to contact primary care provider should he notice a 3 pound weight gain in 1 day or 5 pound weight gain in 1 week. Recommend cardiology follow-up at next available. He was instructed to contact his primary care provider return the emergency room should symptoms return or worsen. Discharged home today. - Patient Instructions Diet: Heart Healthy Diet, Low Sodium Activity: As Tolerated Showering/Bathing: May Shower Notify Provider of: Fever, Increased Pain, Nausea and/or Vomiting Other/Special Instructions: Follow-up with primary care provider within 7 to 10 days of discharge, sooner if needed. Follow-up with Dr. Feldman, stone repairer, at next available appointment. Orders were placed for a re-check lab draw on 09/24/2020 with results to Shani Meza NP. This will be an INR check. Weigh yourself daily. Contact your primary care provider if you notice a 3 pound weight gain in 1 day or a 5 pound weight gain in 1 week. Record your weight in the journal and bring this with to all medical appointments for review. Take your blood pressure twice daily. Record this in a journal and bring this with to all medical appointments for further review. Resume home medications as directed. No new home medications. Should symptoms return or worsen contact primary care provider or return to the emergency room. - Discharge Plan *PRESCRIPTION DRUG MONITORING PROGRAM REVIEWED*: No *COPY OF PRESCRIPTION DRUG MONITORING REPORT IN PATIENT ADÁN: No Home Medications: Home Meds Aspirin [Halfprin] 81 mg PO QAM 02/04/14 [History] Niacin 500 mg PO DAILY 02/04/14 [History] Tamsulosin [Flomax] 0.4 mg PO BEDTIME 02/04/14 [History] Warfarin [Coumadin] 2.5 mg PO 1800 12/30/15 [History] Amiodarone [Cordarone] 200 mg PO DAILY 09/17/20 [History] Calcium Carbonate [Tums] 1 - 2 tab.chew PO DAILY 09/17/20 [History] Clopidogrel [Plavix] 75 mg PO QPM 09/17/20 [History] Furosemide 40 mg PO 1400 09/17/20 [History] Furosemide 60 mg PO QAM 09/17/20 [History] Metoprolol Tartrate 25 mg PO BID 09/17/20 [History] Nitroglycerin 0.4 mg SL ASDIRECTED PRN 09/17/20 [History] Potassium Chloride [Klor-Con 10] 20 meq PO DAILY 09/17/20 [History] Ubidecarenone [Coq-10] 200 mg PO QPM 09/17/20 [History] lisinopriL [Lisinopril] 10 mg PO BEDTIME 09/17/20 [History] Oxygen Therapy Mode: Room Air Patient Handouts: Heart Failure, Self Care, [id number], Heart-Healthy Eating Plan, [id number], Supporting Someone With Heart Failure, Low-Sodium Eating Plan Referrals: Shani Meza NP [Primary Care Provider] - 09/29/20 9:00 am - Discharge Summary/Plan Comment DC Time >30 min.: Yes (45 mins ) - General Info Date of Service: 09/21/20 Admission Dx/Problem (Free Text: Admission Diagnosis/Problem Admission Diagnosis/Problem Congestive heart failure, NYHA class 3 Functional Status: Reports: Tolerating Diet, Ambulating, Urinating, Incentive Spirometry. Denies: Pain Controlled, New Symptoms - Review of Systems General: Reports: No Symptoms. Denies: Fever, Weakness, Fatigue, Malaise, Chills HEENT: Reports: No Symptoms. Denies: Headaches, Sore Throat Pulmonary: Reports: No Symptoms. Denies: Shortness of Breath, Pleuritic Chest Pain, Cough, Sputum, Wheezing Cardiovascular: Reports: Edema. Denies: Chest Pain, Palpitations, Dyspnea on Exertion Gastrointestinal: Reports: No Symptoms. Denies: Abdominal Pain, Constipation, Diarrhea, Nausea, Vomiting Genitourinary: Reports: No Symptoms. Denies: Pain Musculoskeletal: Reports: No Symptoms Skin: Reports: No Symptoms. Denies: Cyanosis Neurological: Reports: No Symptoms. Denies: Confusion, Pre-Existing Deficit, Difficulty Walking, Gait Disturbance Psychiatric: Reports: No Symptoms - Patient Data Vitals - Most Recent: Last Vital Signs Temp 97.5 F 09/21/20 08:03 Pulse 71 09/21/20 08:05 Resp 18 09/21/20 08:03 BP 105/68 09/21/20 08:05 Pulse Ox 94 L 09/21/20 08:03 Weight - Most Recent: 201 lb 14.4 oz I&O - Last 24 hours: Intake & Output 09/20/20 09/21/20 09/21/20 22:59 06:59 14:59 Intake Total 720 200 Output Total 950 1400 Balance -230 -1200 Lab Results - Last 24 hrs: Laboratory Results - last 24 hr 09/21/20 09/21/20 09/21/20 Range/Units 06:10 06:10 06:10 WBC 6.23 (4.23-9.07) K/mm3 RBC 4.71 (4.63-6.08) M/mm3 Hgb 13.7 (13.7-17.5) gm/dl Hct 42.2 (40.1-51.0) % MCV 89.6 (79.0-92.2) fl MCH 29.1 (25.7-32.2) pg MCHC 32.5 (32.2-35.5) g/dl RDW Std Deviation 45.7 H (35.1-43.9) fL Plt Count 192 (163-337) K/mm3 MPV 9.8 (9.4-12.3) fl Neut % (Auto) 71.7 H (34.0-67.9) % Lymph % (Auto) 12.4 L (21.8-53.1) % [place] % (Auto) 8.2 (5.3-12.2) % Eos % (Auto) 6.6 (0.8-7.0) Baso % (Auto) 0.8 (0.1-1.2) % Neut # (Auto) 4.47 (1.78-5.38) K/mm3 Lymph # (Auto) 0.77 L (1.32-3.57) K/mm3 [place] # (Auto) 0.51 (0.30-0.82) K/mm3 Eos # (Auto) 0.41 (0.04-0.54) K/mm3 Baso # (Auto) 0.05 (0.01-0.08) K/mm3 PT 16.8 H (9.7-12.0) SECONDS INR 1.58 Sodium 141 (136-145) mEq/L Potassium 4.6 (3.5-5.1) mEq/L Chloride 104 (98-107) mEq/L Carbon Dioxide 30 (21-32) mEq/L Anion Gap 11.6 (5-15) BUN 31 H (7-18) mg/dL Creatinine 1.7 H (0.7-1.3) mg/dL Est Cr Clr Drug Dosing 29.64 mL/min Estimated GFR (MDRD) 39 (>60) mL/min BUN/Creatinine Ratio 18.2 H (14-18) Glucose 109 H (70-99) mg/dL Calcium 9.4 (8.5-10.1) mg/dL Magnesium 2.4 (1.8-2.4) mg/dL Total Bilirubin 0.6 (0.2-1.0) mg/dL AST 21 (15-37) U/L ALT 22 (16-63) U/L Alkaline Phosphatase 77 (46-116) U/L Total Protein 7.0 (6.4-8.2) g/dl Albumin 3.7 (3.4-5.0) g/dl Globulin 3.3 gm/dL Albumin/Globulin Ratio 1.1 (1-2) Med Orders - Current: Current Medications Acetaminophen (Acetaminophen 325 Mg Tab) 650 mg PO Q4H PRN PRN Reason: Pain (Mild 1-3)/fever Amiodarone HCl (Amiodarone 200 Mg Tab) 200 mg PO DAILY [facility] Last Admin: 09/21/20 08:04 Dose: 200 mg Documented by: Aspirin (Aspirin 81 Mg Tab.Ec) 81 mg PO QAM [facility] Last Admin: 09/21/20 08:04 Dose: 81 mg Documented by: Calcium Carbonate/Glycine (Calcium Carbonate 500 Mg Tab.Chew) 500 - 1,000 mg PO DAILY PRN PRN Reason: Heartburn Last Admin: 09/20/20 12:21 Dose: 500 mg Documented by: Clopidogrel Bisulfate (Clopidogrel 75 Mg Tab) 75 mg PO DAILY [facility] Last Admin: 09/21/20 08:04 Dose: 75 mg Documented by: Docusate Sodium (Docusate Sodium 100 Mg Cap) 100 mg PO Q12H PRN PRN Reason: Constipation Furosemide (Furosemide 40 Mg Tab) 40 mg PO 1400 [facility] Last Admin: 09/20/20 14:22 Dose: 40 mg Documented by: Furosemide (Furosemide 40 Mg Tab) 60 mg PO QAM [facility] Last Admin: 09/21/20 08:04 Dose: 60 mg Documented by: Lisinopril (Lisinopril 10 Mg Tab) 10 mg PO BEDTIME [facility] Last Admin: 09/20/20 20:34 Dose: 10 mg Documented by: Metoprolol Tartrate (Metoprolol Tartrate 25 Mg Tab) 25 mg PO BID [facility] Last Admin: 09/21/20 08:05 Dose: 25 mg Documented by: Nitroglycerin (Nitroglycerin 0.4 Mg Tab.Sl) 0.4 mg SL ASDIRECTED PRN PRN Reason: Chest Pain Ondansetron HCl (Ondansetron 4 Mg/2 Ml Sdv) 4 mg IV Q6H PRN PRN Reason: Nausea/Vomiting Potassium Chloride (Potassium Chloride 20 Meq Tab.Er) 20 meq PO DAILY [facility] Last Admin: 09/21/20 08:06 Dose: 20 meq Documented by: Tamsulosin HCl (Tamsulosin 0.4 Mg Cap.Er) 0.4 mg PO BEDTIME [facility] Last Admin: 09/20/20 20:35 Dose: 0.4 mg Documented by: Warfarin Sodium (Pharmacy To Dose - Warfarin) 1 dose .XX ASDIRECTED PRN PRN Reason: RX TO DOSE WARFARIN Discontinued Medications Bumetanide (Bumetanide 1 Mg/4 Ml Mdv) 1 mg IVPUSH ONETIME ONE Stop: 09/17/20 10:58 Last Admin: 09/17/20 11:09 Dose: 1 mg Documented by: Clopidogrel Bisulfate (Clopidogrel 75 Mg Tab) 75 mg PO QPM [facility] Clopidogrel Bisulfate (Clopidogrel 75 Mg Tab) 75 mg PO QPM [facility] Last Admin: 09/18/20 08:25 Dose: Not Given Documented by: Furosemide (Furosemide 40 Mg/4 Ml Vial) 60 mg IVPUSH ONETIME ONE Stop: 09/17/20 16:01 Last Admin: 09/17/20 15:20 Dose: 60 mg Documented by: Furosemide (Furosemide 20 Mg/2 Ml Vial) 20 mg IVPUSH TID [facility] Last Admin: 09/19/20 20:16 Dose: 20 mg Documented by: Furosemide (Furosemide 40 Mg Tab) 60 mg PO QAM [facility] Hydromorphone HCl (Hydromorphone 0.5 Mg/0.5 Ml Syringe) 0.5 mg IVPUSH ONETIME ONE Stop: 09/17/20 08:36 Last Admin: 09/17/20 08:53 Dose: 0.5 mg Documented by: Metoclopramide HCl (Metoclopramide 10 Mg/2 Ml Sdv) 7.5 mg IVPUSH ONETIME ONE Stop: 09/17/20 08:34 Last Admin: 09/17/20 08:53 Dose: 7.5 mg Documented by: Morphine Sulfate (Morphine 2 Mg/Ml Syringe) 2 mg IVPUSH Q2H PRN PRN Reason: Pain (severe 7-10) Stop: 09/18/20 11:19 Warfarin Sodium (Warfarin Sliding Scale) 0 each PO QPM [facility] Stop: 09/17/20 18:01 Last Admin: 09/17/20 17:19 Dose: Not Given Documented by: Warfarin Sodium (Warfarin Sliding Scale) 0 each PO QPM [facility] Stop: 09/18/20 18:01 Last Admin: 09/18/20 18:17 Dose: Not Given Documented by: Warfarin Sodium (Warfarin 2.5 Mg Tab) 2.5 mg PO QPM [facility] Stop: 09/19/20 18:01 Last Admin: 09/19/20 17:54 Dose: 2.5 mg Documented by: Warfarin Sodium (Warfarin 2.5 Mg Tab) 2.5 mg PO QPM [facility] Stop: 09/20/20 18:01 Last Admin: 09/20/20 18:04 Dose: 2.5 mg Documented by: - Exam Quality Assessment: Reports: DVT Prophylaxis. Denies: Supplemental Oxygen, Urine Catheter General: Reports: Alert, Oriented, Cooperative, No Acute Distress HEENT: Reports: Pupils Equal, Pupils Reactive, Mucous Membr. Moist/[place] Neck: Reports: Supple, Trachea Midline Lungs: Reports: Clear to Auscultation, Normal Respiratory Effort, Decreased Breath Sounds Cardiovascular: Reports: Regular Rate, Regular Rhythm GI/Abdominal Exam: Normal Bowel Sounds, Soft, Non-Tender, No Distention (Male) Exam: Deferred Rectal (Males) Exam: Deferred Back Exam: Reports: Normal Inspection, Full Range of Motion Extremities: Normal Inspection, Normal Range of Motion, Non-Tender, Pedal Edema Skin: Reports: Warm, Dry, Intact Neurological: Reports: No New Focal Deficit Psy/Mental Status: Reports: Alert, Normal Affect, Normal Mood
[2020-09-21] MEDS ORDERED: Warfarin 2.5 MG Tab PO SCH (18:00)
== END 2020-09-21 12:10 | disposition home or self-care (01) | DRG 291 ==
LOC: JD.ED 08:00 → JD.MS 10:59
PROVIDERS: ADMIT Hospitalist; ATTEND Hospitalist
DX: I13.0 Hypertensive heart and chronic kidney disease with heart failure and stage 1 through stage 4 chronic kidney disease, or unspecified chronic kidney disease (principal); I50.33 Acute on chronic diastolic (congestive) heart failure; N18.32 Chronic kidney disease, stage 3b; E87.6 Hypokalemia; I48.20 Chronic atrial fibrillation, unspecified; R79.89 Other specified abnormal findings of blood chemistry; E78.00 Pure hypercholesterolemia, unspecified; R77.8 Other specified abnormalities of plasma proteins; Z79.02 Long term (current) use of antithrombotics/antiplatelets; J44.9 Chronic obstructive pulmonary disease, unspecified; Z79.82 Long term (current) use of aspirin; Z79.899 Other long term (current) drug therapy; Z66 Do not resuscitate; N40.0 Benign prostatic hyperplasia without lower urinary tract symptoms; R07.89 Other chest pain; R79.1 Abnormal coagulation profile; R01.1 Cardiac murmur, unspecified; M19.91 Primary osteoarthritis, unspecified site; Z20.822 Contact with and (suspected) exposure to COVID-19; Z90.89 Acquired absence of other organs; Z98.890 Other specified postprocedural states; Z79.01 Long term (current) use of anticoagulants; Z95.2 Presence of prosthetic heart valve; Z95.5 Presence of coronary angioplasty implant and graft; Z85.51 Personal history of malignant neoplasm of bladder; Z96.641 Presence of right artificial hip joint; Z96.612 Presence of left artificial shoulder joint
CPT/HCPCS: 36415; 71045; 80053; 81001; 83735; 83880; 84484; 85025; 85610; 86140; 93005; 96374; 96375; 99285; J1170; J2765; U0002; 76770; 76770-26; 82553; 93010; 93306; 97162-GP; 99223; 99233; 99239; A9270-GY; J1940; J3490

== ENCOUNTER 2020-12-26 15:51 | Emergency (ER) | payer MEDICARE, BC ==
[2020-12-26] MEDS ORDERED: Sodium Chloride 0.9% 10 ML Syringe FLUSH PRN (17:33)
--- NOTE | 2020-12-26 18:36 | EDM.PDOC ---
ED HPI GENERAL MEDICAL PROBLEM - General Chief Complaint: Cardiovascular Problem Stated Complaint: BLOATED Time Seen by Provider: 12/26/20 17:17 Source of Information: Reports: Patient, Family History Limitations: Reports: No Limitations - History of Present Illness INITIAL COMMENTS - FREE TEXT/NARRATIVE: The patient presents with bloating and weight gain. The patient said for a couple days he noticed a 4 pound weight gain. He also had bloating in his abdomen today. He has no chest pain or abdominal pain. He has nausea or vomiting. He has lots of gas. He has no diarrhea. He did not eat a lot of food yesterday. He has no fever, chills, or cough. He says he does feel more short of breath. Onset: Gradual Duration: Day(s): Severity: Moderate Improves with: Reports: None Worsens with: Reports: None Associated Symptoms: Reports: No Other Symptoms - Related Data Allergies Allergy/AdvReac Type Severity Reaction Status Date / Time enoxaparin [From Lovenox] Allergy Rash Verified 12/26/20 17:22 statins Allergy Mild Muscle Uncoded 09/17/20 08:12 Weakness Home Meds: Home Meds Tamsulosin [Flomax] 0.4 mg PO BEDTIME 02/04/14 [History] Warfarin [Coumadin] 2.5 mg PO 1800 12/30/15 [History] Amiodarone [Cordarone] 200 mg PO DAILY 09/17/20 [History] Calcium Carbonate [Tums] 1 - 2 tab.chew PO DAILY 09/17/20 [History] Clopidogrel [Plavix] 75 mg PO QPM 09/17/20 [History] Furosemide 40 mg PO 1400 09/17/20 [History] Furosemide 60 mg PO QAM 09/17/20 [History] Metoprolol Tartrate 25 mg PO BID 09/17/20 [History] Nitroglycerin 0.4 mg SL ASDIRECTED PRN 09/17/20 [History] Potassium Chloride [Klor-Con 10] 20 meq PO DAILY 09/17/20 [History] Ubidecarenone [Coq-10] 200 mg PO QPM 09/17/20 [History] lisinopriL [Lisinopril] 10 mg PO BEDTIME 09/17/20 [History] Past Medical History HEENT History: Reports: Cataract, Other (See Below) Other HEENT History: wears glasses, upper dentures and lower partial, and bilateral hearing aids Cardiovascular History: Reports: Heart Murmur, Heart Valve Replacement, High Cholesterol, Hypertension, Stents Other Cardiovascular History: AORTIC VALVE SURGERY replacement Respiratory History: Reports: COPD Other Respiratory History: UPPER RESPIRATORY INFECTION ON Sunday Gastrointestinal History: Reports: GERD Genitourinary History: Reports: BPH, Other (See Below) Other Genitourinary History: bladder cancer Musculoskeletal History: Reports: Osteoarthritis, Other (See Below) Other Musculoskeletal History: r hip replacement, back surgery, left shoulder sx Endocrine/Metabolic History: Reports: Other (See Below) Other Endocrine/Metabolic History: borderline diabetic Oncologic (Cancer) History: Reports: Bladder Dermatologic History: Reports: Angiodema - Infectious Disease History Infectious Disease History: Reports: Chicken Pox, Measles, Mumps - Past Surgical History HEENT Surgical History: Reports: Tonsillectomy GI Surgical History: Reports: Appendectomy Social & Family History - Family History Family Medical History: No Pertinent Family History - Tobacco Use Tobacco Use Status *Q: Never Tobacco User Second Hand Smoke Exposure: No - Caffeine Use Caffeine Use: Reports: Coffee, Soda, Tea - Recreational Drug Use Recreational Drug Use: No - Living Situation & Occupation Living situation: Reports: Occupation: Retired ED ROS GENERAL - Review of Systems Review Of Systems: See Below Constitutional: Reports: No Symptoms HEENT: Reports: No Symptoms Respiratory: Reports: No Symptoms Cardiovascular: Reports: No Symptoms Endocrine: Reports: No Symptoms GI/Abdominal: Reports: No Symptoms : Reports: No Symptoms Musculoskeletal: Reports: No Symptoms Skin: Reports: No Symptoms ED EXAM, GENERAL - Physical Exam Exam: See Below Exam Limited By: No Limitations General Appearance: Alert, No Apparent Distress Ears: Normal External Exam Nose: Normal Inspection Head: Atraumatic, Normocephalic Neck: Normal Inspection Respiratory/Chest: No Respiratory Distress, Lungs Clear, Normal Breath Sounds Cardiovascular: Regular Rate, Rhythm, No Edema, No Murmur GI/Abdominal: Soft, Non-Tender, No Organomegaly, No Mass Back Exam: Normal Inspection Extremities: Normal Inspection Neurological: Alert, Oriented, No Motor/Sensory Deficits #1 Interpretation EKG Date: 12/26/20 Time: 17:48 Rhythm: Other (Junctional rhythm) Rate (Beats/Min): 55 [place]: LAD-Left [place] Deviation P-Wave: Absent QRS: RBBB ST-T: Normal QT: Normal Course - Vital Signs Last Recorded V/S: Last Vital Signs Temp 97.3 F 12/26/20 17:21 Pulse 57 L 12/26/20 20:17 Resp 18 12/26/20 20:17 BP 117/69 12/26/20 19:48 Pulse Ox 98 12/26/20 20:17 - Orders/Labs/Meds Orders: Active Orders 24 hr Category Date Time Status Cardiac Monitoring [RC] . DIRECTED Care 12/26/20 17:33 Active Peripheral IV Care [RC] . DIRECTED Care 12/26/20 17:34 Active Abdomen Series w Chest 1V [CR] Stat Exams 12/26/20 17:34 Taken Sodium Chloride 0.9% [Saline Flush] Med 12/26/20 17:33 Active 10 ml FLUSH ASDIRECTED PRN Peripheral IV Insertion Adult [OM.PC] Stat Oth 12/26/20 17:33 Ordered Medication Orders Sodium Chloride (Sodium Chloride 0.9% 10 Ml Syringe) 10 ml FLUSH ASDIRECTED PRN PRN Reason: Keep Vein Open Last Admin: 12/26/20 17:46 Dose: 10 ml Documented by: JENNY Labs: Laboratory Tests 12/26/20 12/26/20 12/26/20 Range/Units 18:12 18:12 18:12 WBC 7.15 (4.23-9.07) K/mm3 RBC 4.59 L (4.63-6.08) M/mm3 Hgb 13.8 (13.7-17.5) gm/dl Hct 42.6 (40.1-51.0) % MCV 92.8 H D (79.0-92.2) fl MCH 30.1 (25.7-32.2) pg MCHC 32.4 (32.2-35.5) g/dl RDW Std Deviation 45.5 H (35.1-43.9) fL Plt Count 216 (163-337) K/mm3 MPV 9.5 (9.4-12.3) fl Neut % (Auto) 73.4 H (34.0-67.9) % Lymph % (Auto) 15.5 L (21.8-53.1) % [place] % (Auto) 8.4 (5.3-12.2) % Eos % (Auto) 1.8 (0.8-7.0) Baso % (Auto) 0.6 (0.1-1.2) % Neut # (Auto) 5.25 (1.78-5.38) K/mm3 Lymph # (Auto) 1.11 L (1.32-3.57) K/mm3 [place] # (Auto) 0.60 (0.30-0.82) K/mm3 Eos # (Auto) 0.13 (0.04-0.54) K/mm3 Baso # (Auto) 0.04 (0.01-0.08) K/mm3 PT (9.7-12.0) SECONDS INR Sodium 137 (136-145) mEq/L Potassium 4.4 (3.5-5.1) mEq/L Chloride 100 (98-107) mEq/L Carbon Dioxide 31 (21-32) mEq/L Anion Gap 10.4 (5-15) BUN 38 H (7-18) mg/dL Creatinine 2.1 H (0.7-1.3) mg/dL Est Cr Clr Drug Dosing 24.00 mL/min Estimated GFR (MDRD) 30 (>60) mL/min BUN/Creatinine Ratio 18.1 H (14-18) Glucose 109 H (70-99) mg/dL Calcium 9.1 (8.5-10.1) mg/dL Total Bilirubin 0.5 (0.2-1.0) mg/dL AST 19 (15-37) U/L ALT 24 (16-63) U/L Alkaline Phosphatase 66 (46-116) U/L Troponin I 0.063 H* (0.00-0.056) ng/mL NT-Pro-B Natriuret Pep 2917 H (0-450) pg/mL Total Protein 7.3 (6.4-8.2) g/dl Albumin 4.0 (3.4-5.0) g/dl Globulin 3.3 gm/dL Albumin/Globulin Ratio 1.2 (1-2) Lipase 165 (73-393) U/L 12/26/20 12/26/20 Range/Units 18:12 19:45 WBC (4.23-9.07) K/mm3 RBC (4.63-6.08) M/mm3 Hgb (13.7-17.5) gm/dl Hct (40.1-51.0) % MCV (79.0-92.2) fl MCH (25.7-32.2) pg MCHC (32.2-35.5) g/dl RDW Std Deviation (35.1-43.9) fL Plt Count (163-337) K/mm3 MPV (9.4-12.3) fl Neut % (Auto) (34.0-67.9) % Lymph % (Auto) (21.8-53.1) % [place] % (Auto) (5.3-12.2) % Eos % (Auto) (0.8-7.0) Baso % (Auto) (0.1-1.2) % Neut # (Auto) (1.78-5.38) K/mm3 Lymph # (Auto) (1.32-3.57) K/mm3 [place] # (Auto) (0.30-0.82) K/mm3 Eos # (Auto) (0.04-0.54) K/mm3 Baso # (Auto) (0.01-0.08) K/mm3 PT 30.3 H (9.7-12.0) SECONDS INR 2.84 Sodium (136-145) mEq/L Potassium (3.5-5.1) mEq/L Chloride (98-107) mEq/L Carbon Dioxide (21-32) mEq/L Anion Gap (5-15) BUN (7-18) mg/dL Creatinine (0.7-1.3) mg/dL Est Cr Clr Drug Dosing mL/min Estimated GFR (MDRD) (>60) mL/min BUN/Creatinine Ratio (14-18) Glucose (70-99) mg/dL Calcium (8.5-10.1) mg/dL Total Bilirubin (0.2-1.0) mg/dL AST (15-37) U/L ALT (16-63) U/L Alkaline Phosphatase (46-116) U/L Troponin I 0.064 H* (0.00-0.056) ng/mL NT-Pro-B Natriuret Pep (0-450) pg/mL Total Protein (6.4-8.2) g/dl Albumin (3.4-5.0) g/dl Globulin gm/dL Albumin/Globulin Ratio (1-2) Lipase (73-393) U/L Meds: Medications Generic Name Dose Route Start Last Admin Trade Name Freq PRN Reason Stop Dose Admin Sodium Chloride 10 ml 12/26/20 17:33 12/26/20 17:46 Sodium Chloride 0.9% 10 Ml Syringe FLUSH 10 ml ASDIRECTED PRN Administration Keep Vein Open - Re-Assessments/Exams Free Text/Narrative Re-Assessment/Exam: 12/26/20 20:35 I ordered an IV saline lock, EKG, CXR and labs. His EKG shows a junctional rhythm at a rate of 55 and a RBBB. His CBC looks good. His INR was therapeutic at 2.84. His creatinine was elevated at 2.1. His troponin was elevated at 0.063. His BNP was elevated at 2917. His CXR shows no infiltrates and no sign of CHF. I did a repeat troponin and it was about the same at 0.064. Departure - Departure Time of Disposition: 20:50 Disposition: Home, Self-Care 01 Condition: Good Clinical Impression: Abdominal distention, Elevated troponin CHF (congestive heart failure) Qualifiers: Heart failure type: unspecified Heart failure chronicity: acute on chronic Qualified Code(s): I50.9 - Heart failure, unspecified Referrals: Shani Meza NP [Primary Care Provider] - 1 Week Forms: ED Department Discharge Additional Instructions: Take 80mg of lasix in the morning and afternoon for 2 days. Then go back to your original dosing. Call me Dr Sierra tomorrow at the ER and let me know the labs your certified orthoptist needed. Take some tums or gas X for your stomach. Please return if you are worse. Sepsis Event Note (ED) - Focused Exam Vital Signs: Vital Signs Temp Pulse Resp BP Pulse Ox 12/26/20 20:17 57 L 18 98 12/26/20 19:48 51 L 16 117/69 98 12/26/20 17:21 97.3 F 61 20 127/83 100 - My Orders Last 24 Hours: My Active Orders 12/26/20 17:33 Cardiac Monitoring [RC] . DIRECTED Sodium Chloride 0.9% [Saline Flush] 10 ml FLUSH ASDIRECTED PRN Peripheral IV Insertion Adult [OM.PC] Stat 12/26/20 17:34 Peripheral IV Care [RC] . DIRECTED Abdomen Series w Chest 1V [CR] Stat - Assessment/Plan Last 24 Hours: My Active Orders 12/26/20 17:33 Cardiac Monitoring [RC] . DIRECTED Sodium Chloride 0.9% [Saline Flush] 10 ml FLUSH ASDIRECTED PRN Peripheral IV Insertion Adult [OM.PC] Stat 12/26/20 17:34 Peripheral IV Care [RC] . DIRECTED Abdomen Series w Chest 1V [CR] Stat
[2020-12-26 20:18] VITALS: PULSE 57
[2020-12-26 21:12] VITALS: BP 123/70
--- NOTE | 2020-12-27 08:10 | CR ---
Abdominal series: Frontal view of the chest was obtained as well as supine and upright views of the abdomen. Comparison: Prior chest x-ray of 10/04/20 no prior abdominal x-ray, prior renal ultrasound of 09/17/20. Heart is enlarged. Upper mediastinum is normal. Sternotomy is noted with prosthetic heart valve. Lungs are clear with no acute parenchymal change. Slight scoliosis is scattered within the spine with scattered degenerative change. Prior surgery is noted within the lower lumbar region. Right hip prosthesis is also noted. Bowel gas pattern is normal. No free air is seen. Slight phlebolith is noted within the right side of the pelvis. Impression: 1. Chronic findings as noted above. 2. Nothing acute is appreciated within the chest or abdomen. Diagnostic code #2
== END 2020-12-26 21:12 | disposition home or self-care (01) ==
LOC: JD.ED 15:51
DX: R14.0 Abdominal distension (gaseous) (principal); I11.0 Hypertensive heart disease with heart failure; I50.9 Heart failure, unspecified; R79.89 Other specified abnormal findings of blood chemistry; J44.9 Chronic obstructive pulmonary disease, unspecified; N40.0 Benign prostatic hyperplasia without lower urinary tract symptoms; M19.90 Unspecified osteoarthritis, unspecified site; I45.10 Unspecified right bundle-branch block; Z88.8 Allergy status to other drugs, medicaments and biological substances; Z79.02 Long term (current) use of antithrombotics/antiplatelets; Z79.899 Other long term (current) drug therapy
CPT/HCPCS: 36415; 74022; 74022-26; 80053; 83690; 83880; 84439; 84443; 84484; 85025; 85610; 93005; 99284-25

== ENCOUNTER 2022-05-09 15:11 | Emergency (ER) | payer MEDICARE, BC ==
[2022-05-09] MEDS ORDERED: Oxymetazoline 0.05% Nasal Spray 30 ML Bottle NAS ONE (15:45)
[2022-05-09 15:50] VITALS: BP 134/84; PULSE 98
== END 2022-05-09 20:09 | disposition home or self-care (01) ==
LOC: JD.ED 15:11
DX: R04.0 Epistaxis (principal); I13.0 Hypertensive heart and chronic kidney disease with heart failure and stage 1 through stage 4 chronic kidney disease, or unspecified chronic kidney disease; N18.32 Chronic kidney disease, stage 3b; I50.9 Heart failure, unspecified; J44.9 Chronic obstructive pulmonary disease, unspecified; K21.9 Gastro-esophageal reflux disease without esophagitis; E78.00 Pure hypercholesterolemia, unspecified; Z88.8 Allergy status to other drugs, medicaments and biological substances; Z95.5 Presence of coronary angioplasty implant and graft; Z79.02 Long term (current) use of antithrombotics/antiplatelets; Z79.899 Other long term (current) drug therapy; Z79.01 Long term (current) use of anticoagulants
CPT/HCPCS: 30903; 36415; 71045; 80053; 83880; 84484; 85025; 85610; 93005; 99285; A9270; C9046; 30901; 93010; 99284

== ENCOUNTER 2022-10-19 00:04 | Emergency (ER) | payer MEDICARE, BC ==
[2022-10-19 00:31] LABS: HEMATOCRIT 44.4 % (40.1-51.0); HEMOGLOBIN 14.7 gm/dl (13.7-17.5); MEAN CORPUSCULAR HEMOGLOBIN 30.8 pg (25.7-32.2); MEAN CORPUSCULAR HGB CONC 33.1 g/dl (32.2-35.5); MEAN CORPUSCULAR VOLUME 92.9 fl (79.0-92.2); MEAN PLATELET VOLUME 9.4 fl (9.4-12.3); PLATELET COUNT,PLT 226 K/mm3 (163-337); RED BLOOD CELL COUNT 4.78 M/mm3 (4.63-6.08)
[2022-10-19 00:48] LABS: INR 2.99; PROTHROMBIN TIME 29.5 SECONDS (9.7-12.0)
[2022-10-19 00:49] LABS: D-DIMER QUANTITATIVE 0.3 mg/L (0.19-0.50)
[2022-10-19 00:50] LABS: PTT,PARTIAL THROMBOPLSTIN TIME 34.2 SECONDS (21.7-31.4)
[2022-10-19 00:51] LABS: BAND PERCENT MAN 0 % (0-10); BASOPHILS PERCENT MAN 1 (0.2-1.2); EOSINOPHILS PERCENT MAN 0 % (0.8-7.0); LYMPHOCYTES % ATYPICAL MANUAL 0 %; LYMPHOCYTES PERCENT MAN 6 % (20-40); MONOCYTES PERCENT MAN 3 % (2-10)
[2022-10-19 00:53] LABS: PLATELET COUNT ESTIMATE ADEQUATE
[2022-10-19 00:59] LABS: A/G RATIO 0.8 (1-2); ALBUMIN 3.8 g/dl (3.4-5.0); ANION GAP 10.5 (5-15); BILIRUBIN TOTAL 0.5 mg/dL (0.2-1.0); CALCIUM 9.6 mg/dL (8.5-10.1); EST CRCL DRUG DOSING (CG) 24.34 mL/min; POTASSIUM,K 3.5 mEq/L (3.5-5.1); PROTEIN TOTAL,TP 8.8 g/dl (6.4-8.2)
[2022-10-19] MEDS ORDERED: HYDROmorphone 0.5 MG/0.5 ML Syringe IVPUSH ONE (02:17)
[2022-10-19] MEDS ORDERED: Ondansetron 4 MG/2 ML SDV IVPUSH ONE (02:17)
[2022-10-19] MEDS ORDERED: Sodium Chloride 0.9% 1,000 ML IV SCH (02:30)
[2022-10-19] MEDS ORDERED: Iopamidol 612 MG/ML 100 ML Bottle IVPUSH ONE (03:54)
[2022-10-19] MEDS ORDERED: Famotidine 20 MG Tab PO STA (05:18)
[2022-10-19 06:07] VITALS: BP 133/82; PULSE 102
== END 2022-10-19 06:00 | disposition home or self-care (01) ==
LOC: JD.ED 00:04
DX: R10.11 Right upper quadrant pain (principal); I48.91 Unspecified atrial fibrillation; I25.10 Atherosclerotic heart disease of native coronary artery without angina pectoris; I50.9 Heart failure, unspecified; I11.0 Hypertensive heart disease with heart failure; E78.00 Pure hypercholesterolemia, unspecified; J44.9 Chronic obstructive pulmonary disease, unspecified; K21.9 Gastro-esophageal reflux disease without esophagitis; Z88.1 Allergy status to other antibiotic agents; Z88.8 Allergy status to other drugs, medicaments and biological substances; Z79.01 Long term (current) use of anticoagulants; Z79.899 Other long term (current) drug therapy
CPT/HCPCS: 36415; 71045; 74177; 76705; 80053; 83690; 83880; 84484; 85007; 85027; 85379; 85610; 85730; 93005; 96361; 96374; 96375; 99285; A9270; J1170; J2405; J7030; Q9967

== ENCOUNTER 2023-01-11 14:54 | Emergency (ER) | payer MEDICARE, BC ==
[2023-01-11 16:15] LABS: INR 3.07; PROTHROMBIN TIME 30.2 SECONDS (9.7-12.0)
[2023-01-11 16:16] VITALS: PULSE 86
[2023-01-11 16:54] VITALS: BP 112/98
== END 2023-01-11 16:50 | disposition home or self-care (01) ==
LOC: JD.ED 14:54
DX: R04.0 Epistaxis (principal); I48.91 Unspecified atrial fibrillation; I25.10 Atherosclerotic heart disease of native coronary artery without angina pectoris; I11.0 Hypertensive heart disease with heart failure; I50.9 Heart failure, unspecified; J44.9 Chronic obstructive pulmonary disease, unspecified; Z79.01 Long term (current) use of anticoagulants; Z79.899 Other long term (current) drug therapy; Z79.02 Long term (current) use of antithrombotics/antiplatelets; Z88.8 Allergy status to other drugs, medicaments and biological substances
CPT/HCPCS: 30901; 30905; 36415; 85610; 85730; 99283; 99283-25

== ENCOUNTER 2023-01-13 09:17 | Emergency (ER) | payer MEDICARE, BC ==
[2023-01-13] MEDS ORDERED: Cephalexin 500 MG Cap PO ONE (09:41)
[2023-01-13 10:58] VITALS: BP 122/78; PULSE 84
== END 2023-01-13 10:50 | disposition home or self-care (01) ==
LOC: JD.ED 09:17
DX: R04.0 Epistaxis (principal); I48.91 Unspecified atrial fibrillation; I25.10 Atherosclerotic heart disease of native coronary artery without angina pectoris; I11.0 Hypertensive heart disease with heart failure; I50.9 Heart failure, unspecified; E78.00 Pure hypercholesterolemia, unspecified; J44.9 Chronic obstructive pulmonary disease, unspecified; Z95.5 Presence of coronary angioplasty implant and graft; Z79.01 Long term (current) use of anticoagulants; Z79.02 Long term (current) use of antithrombotics/antiplatelets; Z79.899 Other long term (current) drug therapy; Z88.8 Allergy status to other drugs, medicaments and biological substances
CPT/HCPCS: 99282; A9270; 30901; 99283

== ENCOUNTER 2023-01-15 09:21 | Emergency (ER) | payer MEDICARE, BC ==
[2023-01-15 12:05] VITALS: BP 112/73; PULSE 87
== END 2023-01-15 12:00 | disposition home or self-care (01) ==
LOC: JD.ED 09:21
DX: Z48.00 Encounter for change or removal of nonsurgical wound dressing (principal); I48.91 Unspecified atrial fibrillation; I11.0 Hypertensive heart disease with heart failure; I50.9 Heart failure, unspecified; E78.00 Pure hypercholesterolemia, unspecified; J44.9 Chronic obstructive pulmonary disease, unspecified; I25.10 Atherosclerotic heart disease of native coronary artery without angina pectoris; Z88.8 Allergy status to other drugs, medicaments and biological substances; Z79.01 Long term (current) use of anticoagulants; Z79.899 Other long term (current) drug therapy
CPT/HCPCS: 99282

== ENCOUNTER 2023-06-30 17:53 | Emergency (ER) | payer MEDICARE, BC ==
[2023-06-30 22:10] LABS: INR 2.22; PROTHROMBIN TIME 22.4 SECONDS (9.7-12.0)
[2023-06-30] MEDS: Mupirocin Oint 22 GM Tube TOP ONE (22:10)
[2023-06-30 22:56] VITALS: BP 122/73; PULSE 90
== END 2023-06-30 22:33 | disposition home or self-care (01) ==
LOC: JD.ED 17:53
DX: R04.0 Epistaxis (principal); Z79.01 Long term (current) use of anticoagulants; I11.0 Hypertensive heart disease with heart failure; I50.9 Heart failure, unspecified; E78.00 Pure hypercholesterolemia, unspecified; J44.9 Chronic obstructive pulmonary disease, unspecified; K21.9 Gastro-esophageal reflux disease without esophagitis; Z95.5 Presence of coronary angioplasty implant and graft; Z79.899 Other long term (current) drug therapy; Z88.1 Allergy status to other antibiotic agents; Z88.8 Allergy status to other drugs, medicaments and biological substances
CPT/HCPCS: 36415; 85610; 99283

== ENCOUNTER 2024-04-23 17:53 | Inpatient (IN) | payer MEDICARE, BC ==
[2024-04-23] MEDS ORDERED: Sodium Chloride 0.9% 10 ML Syringe FLUSH PRN (18:20)
[2024-04-23 18:33] LABS: BASOPHILS ABSOLUTE AUTO 0.1 K/mm3 (0.0-0.2); EOSINOPHILS ABSOLUTE AUTO 0.1 K/mm3 (0.0-0.4); EOSINOPHILS PERCENT AUTO 2.5 % (0.0-6.0); HEMATOCRIT 37.4 % (42.0-52.0); HEMOGLOBIN 12.4 gm/dl (14.0-18.0); IMMATURE GRAN ABSOLUTE AUTO 0.02 K/mm3 (0.00-0.05); IMMATURE GRAN PERCENT AUTO 0.4 % (0.0-0.4); LYMPHOCYTES ABSOLUTE AUTO 0.7 K/mm3 (1.0-4.8); LYMPHOCYTES PERCENT AUTO 12.6 % (24.0-44.0); MEAN CORPUSCULAR HEMOGLOBIN 30.1 pg (28.0-32.0); MEAN CORPUSCULAR HGB CONC 33.2 g/dl (32.0-36.0); MEAN CORPUSCULAR VOLUME 90.8 fl (83.0-99.0); MEAN PLATELET VOLUME 9.8 fl (9.4-12.4); MONOCYTES ABSOLUTE AUTO 0.4 K/mm3 (0.0-0.8); MONOCYTES PERCENT AUTO 7.2 % (0.0-8.0); NEUTROPHILS PERCENT AUTO 76.3 % (41.0-71.0); PLATELET COUNT,PLT 187 K/mm3 (150-400); RED BLOOD CELL COUNT 4.12 M/mm3 (4.52-5.90); WHITE BLOOD CELL COUNT,WBC 5.17 K/mm3 (3.9-11.3)
[2024-04-23 18:48] LABS: INR 2.76; PROTHROMBIN TIME 27.4 SECONDS (9.7-12.0)
[2024-04-23 19:00] LABS: A/G RATIO 0.8 (1-2); ALBUMIN 3.6 g/dl (3.4-5.0); ANION GAP 11.1 (5-15); BILIRUBIN TOTAL 0.7 mg/dL (0.2-1.0); BUN/CREATININE RATIO 14.8 (14-18); CALCIUM 9.5 mg/dL (8.5-10.1); CREATININE 2.1 mg/dL (0.7-1.3); EST CRCL DRUG DOSING (CG) 22.78 mL/min; MAGNESIUM 2.1 mg/dL (1.8-2.4); POTASSIUM,K 4.1 mEq/L (3.5-5.1); PROTEIN TOTAL,TP 8.2 g/dl (6.4-8.2)
[2024-04-23] MEDS: Furosemide 40 MG/4 ML VIAL IVPUSH ONE (19:20)
[2024-04-24 05:13] LABS: A/G RATIO 0.8 (1-2); ALBUMIN 3.3 g/dl (3.4-5.0); ANION GAP 12.5 (5-15); BILIRUBIN TOTAL 0.9 mg/dL (0.2-1.0); BUN/CREATININE RATIO 15.3 (14-18); CALCIUM 9.1 mg/dL (8.5-10.1); CREATININE 1.9 mg/dL (0.7-1.3); EST CRCL DRUG DOSING (CG) 25.18 mL/min; POTASSIUM,K 3.5 mEq/L (3.5-5.1); PROTEIN TOTAL,TP 7.5 g/dl (6.4-8.2)
[2024-04-24] MEDS ORDERED: Polyethylene Glycol 3350 Powder 17 GM Packet PO PRN (08:08)
[2024-04-24] MEDS ORDERED: Ondansetron 4 MG/2 ML SDV IV PRN (08:08)
[2024-04-24] MEDS ORDERED: Docusate Sodium 100 MG Cap PO PRN (08:08)
[2024-04-24] MEDS ORDERED: TAFAMIDIS 61 MG PO SCH (09:00)
[2024-04-24] MEDS: Levothyroxine 25 MCG Tab PO SCH (09:19)
[2024-04-24] MEDS: Aspirin 81 MG Tab.Chew PO SCH (09:19)
[2024-04-24] MEDS: Pantoprazole 40 MG Tab.CR PO SCH (09:20)
[2024-04-24] MEDS: Amiodarone 200 MG Tab PO SCH (09:20)
[2024-04-24] MEDS: Potassium Chloride 20 MEQ Tab.ER PO SCH (09:20)
[2024-04-24] MEDS: Tamsulosin 0.4 MG Cap.ER PO SCH (09:20)
[2024-04-24] MEDS: Furosemide 40 MG/4 ML VIAL IVPUSH ONE (10:21)
[2024-04-24] MEDS: Warfarin** 1 MG TABLET PO SCH (17:20)
[2024-04-25] MEDS: Acetaminophen 325 MG Tab PO PRN (00:40)
[2024-04-25 04:54] LABS: BASOPHILS ABSOLUTE AUTO 0.1 K/mm3 (0.0-0.2); BASOPHILS PERCENT AUTO 1.3 % (0.0-1.0); EOSINOPHILS ABSOLUTE AUTO 0.2 K/mm3 (0.0-0.4); EOSINOPHILS PERCENT AUTO 3.9 % (0.0-6.0); HEMATOCRIT 39.8 % (42.0-52.0); HEMOGLOBIN 12.9 gm/dl (14.0-18.0); IMMATURE GRAN ABSOLUTE AUTO 0.01 K/mm3 (0.00-0.05); IMMATURE GRAN PERCENT AUTO 0.2 % (0.0-0.4); LYMPHOCYTES ABSOLUTE AUTO 0.7 K/mm3 (1.0-4.8); LYMPHOCYTES PERCENT AUTO 14.7 % (24.0-44.0); MEAN CORPUSCULAR HEMOGLOBIN 29.9 pg (28.0-32.0); MEAN CORPUSCULAR HGB CONC 32.4 g/dl (32.0-36.0); MEAN CORPUSCULAR VOLUME 92.1 fl (83.0-99.0); MEAN PLATELET VOLUME 9.5 fl (9.4-12.4); MONOCYTES ABSOLUTE AUTO 0.4 K/mm3 (0.0-0.8); MONOCYTES PERCENT AUTO 8.9 % (0.0-8.0); NEUTROPHILS ABSOLUTE AUTO 3.3 K/mm3 (1.8-7.7); PLATELET COUNT,PLT 183 K/mm3 (150-400); RED BLOOD CELL COUNT 4.32 M/mm3 (4.52-5.90); WHITE BLOOD CELL COUNT,WBC 4.63 K/mm3 (3.9-11.3)
[2024-04-25 05:30] LABS: A/G RATIO 0.8 (1-2); ALBUMIN 3.5 g/dl (3.4-5.0); ANION GAP 11.2 (5-15); BILIRUBIN TOTAL 0.7 mg/dL (0.2-1.0); CALCIUM 9.7 mg/dL (8.5-10.1); EST CRCL DRUG DOSING (CG) 23.92 mL/min; MAGNESIUM 2.2 mg/dL (1.8-2.4); POTASSIUM,K 4.2 mEq/L (3.5-5.1); PROTEIN TOTAL,TP 8.1 g/dl (6.4-8.2)
[2024-04-25 07:07] LABS: INR 1.9; PROTHROMBIN TIME 19.3 SECONDS (9.7-12.0)
[2024-04-25] MEDS: Furosemide 40 MG/4 ML VIAL IVPUSH ONE (08:40)
[2024-04-25] MEDS: Metolazone 2.5 MG Tab PO ONE (08:40)
[2024-04-25 12:46] VITALS: BP 112/73; PULSE 85
[2024-04-25] MEDS ORDERED: Warfarin 4 MG Tab PO SCH (18:00)
[2024-04-26] MEDS ORDERED: Calcitriol 0.25 MCG Cap PO SCH (09:00)
== END 2024-04-25 12:45 | disposition home health service (06) | DRG 291 ==
LOC: JD.ED 17:53 → JD.MS 19:18
PROVIDERS: ADMIT Internal Medicine; ATTEND Student in an Organized Health Care Education/Training Program
DX: I11.0 Hypertensive heart disease with heart failure (principal); I50.9 Heart failure, unspecified; I13.0 Hypertensive heart and chronic kidney disease with heart failure and stage 1 through stage 4 chronic kidney disease, or unspecified chronic kidney disease; I50.21 Acute systolic (congestive) heart failure; E85.4 Organ-limited amyloidosis; I43 Cardiomyopathy in diseases classified elsewhere; Z90.49 Acquired absence of other specified parts of digestive tract; I48.91 Unspecified atrial fibrillation; I25.10 Atherosclerotic heart disease of native coronary artery without angina pectoris; E78.00 Pure hypercholesterolemia, unspecified; Z79.890 Hormone replacement therapy; J44.9 Chronic obstructive pulmonary disease, unspecified; K21.9 Gastro-esophageal reflux disease without esophagitis; M19.90 Unspecified osteoarthritis, unspecified site; Z96.649 Presence of unspecified artificial hip joint; Z66 Do not resuscitate; N40.0 Benign prostatic hyperplasia without lower urinary tract symptoms; N18.32 Chronic kidney disease, stage 3b; Z88.8 Allergy status to other drugs, medicaments and biological substances; Z79.01 Long term (current) use of anticoagulants; Z79.899 Other long term (current) drug therapy; Z85.51 Personal history of malignant neoplasm of bladder; Z98.49 Cataract extraction status, unspecified eye; Z90.89 Acquired absence of other organs; Z98.890 Other specified postprocedural states; Z95.5 Presence of coronary angioplasty implant and graft; Z95.2 Presence of prosthetic heart valve
CPT/HCPCS: 36415; 71045; 71045-26; 72148; 72148-26; 80053; 83735; 83880; 84484; 85025; 85610; 87428-QW; 93005; 97110-GP; 97112-GP; 97116-GP; 97161-GP; 99285; A9270-GY; J1940

== ENCOUNTER 2024-07-15 19:23 | Emergency (ER) | payer MEDICARE, BC ==
[2024-07-15 19:53] LABS: BASOPHILS ABSOLUTE AUTO 0.1 K/mm3 (0.0-0.2); BASOPHILS PERCENT AUTO 1.1 % (0.0-1.0); EOSINOPHILS ABSOLUTE AUTO 0.3 K/mm3 (0.0-0.4); EOSINOPHILS PERCENT AUTO 5.4 % (0.0-6.0); HEMATOCRIT 37.9 % (42.0-52.0); HEMOGLOBIN 12.5 gm/dl (14.0-18.0); IMMATURE GRAN ABSOLUTE AUTO 0.02 K/mm3 (0.00-0.05); IMMATURE GRAN PERCENT AUTO 0.4 % (0.0-0.4); LYMPHOCYTES ABSOLUTE AUTO 0.8 K/mm3 (1.0-4.8); LYMPHOCYTES PERCENT AUTO 15.6 % (24.0-44.0); MEAN CORPUSCULAR HEMOGLOBIN 30.3 pg (28.0-32.0); MONOCYTES ABSOLUTE AUTO 0.4 K/mm3 (0.0-0.8); NEUTROPHILS ABSOLUTE AUTO 3.8 K/mm3 (1.8-7.7); NEUTROPHILS PERCENT AUTO 69.5 % (41.0-71.0); PLATELET COUNT,PLT 187 K/mm3 (150-400); RED BLOOD CELL COUNT 4.12 M/mm3 (4.52-5.90); WHITE BLOOD CELL COUNT,WBC 5.39 K/mm3 (3.9-11.3)
[2024-07-15 20:23] LABS: A/G RATIO 0.8 (1-2); ALBUMIN 3.6 g/dl (3.4-5.0); ANION GAP 8.6 (5-15); BILIRUBIN TOTAL 0.7 mg/dL (0.2-1.0); BUN/CREATININE RATIO 13.8 (14-18); CALCIUM 9.8 mg/dL (8.5-10.1); CREATININE 2.4 mg/dL (0.7-1.3); EST CRCL DRUG DOSING (CG) 19.57 mL/min; POTASSIUM,K 4.6 mEq/L (3.5-5.1)
[2024-07-15 20:51] LABS: INR 3.66; PROTHROMBIN TIME 35.6 SECONDS (9.7-12.0)
[2024-07-15] MEDS: Sodium Chloride 0.9% 10 ML Syringe FLUSH PRN (21:58)
[2024-07-15] MEDS: Furosemide 40 MG/4 ML VIAL IVPUSH ONE (23:16)
[2024-07-15] MEDS: Acetaminophen 325 MG Tab PO ONE (23:16)
[2024-07-16 08:26] VITALS: BP 109/66; PULSE 90
== END 2024-07-16 09:11 ==
LOC: JD.ED 19:23
DX: I11.0 Hypertensive heart disease with heart failure (principal); I50.9 Heart failure, unspecified; R94.4 Abnormal results of kidney function studies; R79.1 Abnormal coagulation profile; J44.9 Chronic obstructive pulmonary disease, unspecified; I25.10 Atherosclerotic heart disease of native coronary artery without angina pectoris; I48.91 Unspecified atrial fibrillation; Z88.8 Allergy status to other drugs, medicaments and biological substances; Z88.6 Allergy status to analgesic agent; Z79.01 Long term (current) use of anticoagulants; Z79.899 Other long term (current) drug therapy; Z95.5 Presence of coronary angioplasty implant and graft
CPT/HCPCS: 36415; 71045; 80053; 83880; 84484; 85025; 85610; 87428; 93005; 96374; 99285; A9270; J1938; 93010

== ENCOUNTER 2024-11-16 09:44 | Emergency (ER) | payer MEDICARE, BC ==
[2024-11-16 09:59] VITALS: PULSE 73
[2024-11-16 10:19] LABS: BASOPHILS ABSOLUTE AUTO 0.1 K/mm3 (0.0-0.2); BASOPHILS PERCENT AUTO 1.4 % (0.0-1.0); EOSINOPHILS ABSOLUTE AUTO 0.2 K/mm3 (0.0-0.4); EOSINOPHILS PERCENT AUTO 5.3 % (0.0-6.0); IMMATURE GRAN ABSOLUTE AUTO 0.00 K/mm3 (0.00-0.05); IMMATURE GRAN PERCENT AUTO 0.0 % (0.0-0.4); LYMPHOCYTES ABSOLUTE AUTO 0.7 K/mm3 (1.0-4.8); LYMPHOCYTES PERCENT AUTO 17.2 % (24.0-44.0); MEAN PLATELET VOLUME 9.0 fl (9.4-12.4); MONOCYTES ABSOLUTE AUTO 0.4 K/mm3 (0.0-0.8); MONOCYTES PERCENT AUTO 8.4 % (0.0-8.0); NEUTROPHILS ABSOLUTE AUTO 2.8 K/mm3 (1.8-7.7); NEUTROPHILS PERCENT AUTO 67.7 % (41.0-71.0); NRBC ABSOLUTE 0.00 (0.00-0.02); NRBC PERCENT 0.0 % (0.0-0.2); PLATELET COUNT,PLT 161 K/mm3 (150-400); RED BLOOD CELL COUNT 4.15 M/mm3 (4.52-5.90); WHITE BLOOD CELL COUNT,WBC 4.19 K/mm3 (3.9-11.3)
[2024-11-16 11:01] LABS: A/G RATIO 1.0 (1-2); ALANINE AMINOTRANSFERASE,ALT 20.0 U/L (16-63); ASPARTATE AMNIOTRANSFERASE,AST 27.0 U/L (15-37); BILIRUBIN TOTAL 0.7 mg/dL (0.2-1.0); BLOOD UREA NITROGEN,BUN 33.0 mg/dL (7-18); CARBON DIOXIDE,CO2 27.0 mEq/L (21-32); CHLORIDE,CL 102.0 mEq/L (98-107); CREATINE KINASE,CK 89.0 U/L (39-308); CREATININE 2.6 mg/dL (0.7-1.3); EST CRCL DRUG DOSING (CG) 18.07 mL/min; ESTIMATED GFR 23.0 mL/min (>60); GLUCOSE RANDOM 110.0 mg/dL (70-99); POTASSIUM,K 4.4 mEq/L (3.5-5.1); PROTEIN TOTAL,TP 7.5 g/dl (6.4-8.2); SODIUM,NA 137.0 mEq/L (136-145)
[2024-11-16 11:05] LABS: TROPONIN I HIGH SENSITIVITY 90.0 pg/mL (<=76)
[2024-11-16] MEDS: Bumetanide 1 MG/4 ML MDV IVPUSH ONE (13:30)
[2024-11-16 13:58] VITALS: BP 104/65
== END 2024-11-16 13:50 | disposition home or self-care (01) ==
LOC: JD.ED 09:44
DX: I13.0 Hypertensive heart and chronic kidney disease with heart failure and stage 1 through stage 4 chronic kidney disease, or unspecified chronic kidney disease (principal); N18.9 Chronic kidney disease, unspecified; I50.9 Heart failure, unspecified; E78.00 Pure hypercholesterolemia, unspecified; I48.91 Unspecified atrial fibrillation; K21.9 Gastro-esophageal reflux disease without esophagitis; Z88.8 Allergy status to other drugs, medicaments and biological substances; Z79.01 Long term (current) use of anticoagulants; Z79.899 Other long term (current) drug therapy; Z79.82 Long term (current) use of aspirin
CPT/HCPCS: 36415; 71045; 80053; 82550; 83690; 83735; 83880; 84484; 85025; 93005; 96374; 99285; A9270; J3490; 93010; 99283